=== PATIENT | female | born 1980 | race Caucasian/White ===

== ENCOUNTER 2019-10-04 20:59 | Emergency (ER) | payer OTHER, SELFPAY ==
--- NOTE | 2019-10-04 21:05 | ED.EXTPRO ---
HPI - Extremity Problem General Chief complaint: Extremity Problem,Nontraumatic Stated complaint: swelling in feet and stomach Time Seen by Provider: 10/04/19 21:05 Source: patient and RN notes reviewed Mode of arrival: wheelchair Limitations: no limitations History of Present Illness HPI Narrative: patient comes from another facility where she was seen in the emergency room. She was seen there due to her lower extremity swelling and she says that her abdomen is swelling. She says it has been getting worse since this morning when she was at the emergency room. She does not know what kind it test she had. She states she does not remember what they told her to do or how they treated her. She was given some fentanyl initially that did not help with the pain in her legs or feet. She was then given some morphine but that has since worn off. She complains that her feet hurt to walk on. She feels like her stomach is getting bigger. MD Complaint: extremity pain and extremity swelling Onset (ago): day(s) (3) Pain Consistency: constant Location: left, right, lower extremity and other ( and abdomen) Quality: aching and dull Radiation: none Relieving factors: nothing Exacerbating factors: weight bearing and palpation Associated symptoms: denies other symptoms Related Data Home Medications Medication Instructions Recorded Confirmed albuterol sulfate [Ventolin HFA] 93 inh INHALATION BID 10/04/19 10/04/19 amlodipine 2.5 mg PO DAILY 10/04/19 10/04/19 atorvastatin 80 mg PO DAILY 10/04/19 10/04/19 budesonide-formoterol [Symbicort] 1 inh INHALATION BID 10/04/19 10/04/19 ergocalciferol (vitamin D2) 1,250 mcg PO DAILY 10/04/19 10/04/19 escitalopram oxalate 10 mg PO DAILY 10/04/19 10/04/19 furosemide 40 mg PO DAILY 10/04/19 10/04/19 gabapentin 300 mg PO BID 10/04/19 10/04/19 metoprolol tartrate 25 mg PO BID 10/04/19 10/04/19 polyethylene glycol 3350 [ClearLax] 17 g PO DAILY PRN 10/04/19 10/04/19 prazosin 1 mg PO DAILY 10/04/19 10/04/19 quetiapine 100 mg PO HS 10/04/19 10/04/19 Allergies Allergy/AdvReac Type Severity Reaction Status Date / Time No Known Allergies Allergy Verified 10/04/19 23:41 Review of Systems Constitutional: Constitutional: Reports no additional constitutional complaints, Denies chills and Denies fever(s) Eyes: Eyes: Reports no additional eye complaints ENT: Reports system reviewed and no additional complaints, except as documented Cardiovascular: Cardiovascular: Denies chest pain and Denies rapid heart rate Respiratory: Respiratory: Denies chest congestion, Denies cough, Denies dyspnea and Denies wheezing Gastrointestinal: Gastrointestinal: Reports as per HPI Genitourinary: Genitourinary: Reports no additional female genitourinary complaints Musculoskeletal: Musculoskeletal: Reports as per HPI Integumentary/Breasts: Skin/Breast: Reports system reviewed and no additional complaints, except as docu Neurologic: Reports system reviewed and no additional complaints, except as documented Endocrine: Endocrine: Reports no additional endocrine complaints PMFSH Past Medical History Medical History (Updated 10/05/19 @ 00:01 by Sanford Crandall MD) Bipolar affect, depressed Hypertension Peripheral edema Surgical History Surgical History (Updated 10/05/19 @ 00:01 by Sanford Crandall MD) H/O repair of rotator cuff left History of appendectomy Social History Social History (Updated 10/04/19 @ 23:49 by Sanford Crandall MD) Smoking packs per day: 1.5 Smoking cigarettes per day: 30.0 Smoking status: Current every day smoker Tobacco type: cigarettes Alcohol intake: former Substance use: never Exam Const: General: healthy appearing and no acute distress Nutritional Appearance: well nourished Orientation/consciousness: patient oriented x3 HENMT: Head: normal to inspection Ears: external ears normal General nose exam: Normal external nose present Face and sinus: normal facial exam Mouth:
[2019-10-04 21:14] VITALS: BP 138/87; PULSE 94; RESP 15; TEMP 36.9; O2SAT 97
--- NOTE | 2019-10-04 22:46 | PC.NURSE ---
4TH CALL PLACED TO [facility] ABOUT RECEIVING ER CHART - PATIENT IS UPDATED ON WAIT TIME
--- NOTE | 2019-10-04 23:18 | PC.NURSE ---
Spoke with dry house operator Sergey at [facility] regarding er chart release. states has attempted and received busy signal. gave 2nd floor fax number. awaiting chart.
[2019-10-04] MEDS: POTASSIUM BICARBONATE 25 MEQ TABEF PO (23:43)
[2019-10-04] MEDS: FUROSEMIDE INJ 40 MG/4 ML VIAL IM (23:43)
[2019-10-05 00:21] VITALS: BP 166/95; PULSE 99; RESP 16; O2SAT 98
== END 2019-10-05 00:15 | disposition home or self-care (01) ==
PROVIDERS: Emergency Provider Emergency Medicine; PCP Physician Assistant
DX: I50.9 Heart failure, unspecified (principal)
CPT/HCPCS: 96372; 99282; 99283; A9270; J1940

== ENCOUNTER 2021-10-09 10:03 | Inpatient (IN) | payer OTHER, SELFPAY ==
[2021-10-09] VITALS (25 sets, daily range): BP systolic 130–154; BP diastolic 87–103; PULSE 98–130; RESP 16–22; TEMP 36.1–37.1; O2SAT 90–99; BMI 34.0
--- NOTE | ~2021-10-09 | CT_ITS ---
EXAMINATION: CTA brain carotid DATE: 10/14/2021 15:07 INDICATION: Cerebrovascular accident. TECHNIQUE: Computed tomographic angiography (CTA) of the head was performed without and with 100 mL O mnipaque-350 intravenous contrast. CTA of the neck was performed with intravenous contrast. Automated exposure control and iterative reconstruction technique were employed. The dose-length product was 2 392.04 mGy-cm. Maximum intensity projection and volume rendered 3D-reconstructions were created by marc avilez technologist on a separate workstation. COMPARISON: Head CT 10/09/2021 FINDINGS: HEAD CTA: Motion artifact decreases sensitivity. There is an infarct in left cerebellum. There is no intracranial hemorrhage, acute infarction, or abnormal intracranial mass lesion. The ventricles are n ormal in size. The paranasal sinuses are clear. The orbits are normal. The mastoid air cells are norm al. Right vertebral artery is dominant. There is no significant stenosis of basilar artery or the pos terior cerebral arteries. There is no significant stenosis of the intracranial internal carotid arter ies or anterior or middle cerebral arteries. Anterior communicating artery is normal. The posterior c ommunicating arteries are normal. There is no aneurysm. NECK CTA: The visualized portions of the lungs demonstrate groundglass opacities in the upper lobes. There are no pathologically enlarged lymph nodes. Motion artifact obscures the proximal left vertebra l artery. There is no significant stenosis of the vertebral arteries. There is plaque in the proximal internal carotid arteries. There is 0% stenosis of the proximal right internal carotid artery relati ve to normal distal artery lumen diameter (NASCET criteria). There is 0% stenosis of the proximal lef t internal carotid artery relative to normal distal artery lumen diameter. There is mild cervical spo ndylosis. IMPRESSION: 1. Stable infarct in left cerebellum, likely chronic. 2. No aneurysm or significant intracranial internal stenosis. 3. 0% stenosis of the proximal internal carotid arteries relative to normal distal artery lumen diame ters (NASCET criteria). Reviewed, dictated and finalized at location A. IMPRESSION: 1. Stable infarct in left cerebellum, likely chronic. 2. No aneurysm or significant intracranial internal stenosis. 3. 0% stenosis of the proximal internal carotid arteries relative to normal dis vandana artery lumen diameters (NASCET criteria).
--- NOTE | ~2021-10-09 | CT_ITS ---
EXAMINATION: CT brain wo con DATE: 10/09/2021 10:49 INDICATION: Altered mental status. Confusion. Speech deficit. TECHNIQUE: Computed tomography (CT) of the head was performed without intravenous contrast. The mA wa s adjusted according to patient size. Iterative reconstruction technique was employed. The dose-lengt h product was 605.33 mGy-cm. COMPARISON: None FINDINGS: There is an infarct in left cerebellum. There is no intracranial hemorrhage or abnormal int racranial mass lesion. The ventricles are normal in size. There is mild mucosal thickening in the par anasal sinuses. The orbits are normal. The mastoid air cells are normal. IMPRESSION: 1. Infarct in left cerebellum, likely subacute or chronic. Reviewed, dictated and finalized at location A.
--- NOTE | ~2021-10-09 | XR_ITS ---
EXAMINATION: XR chest 1V portable 10/09/2021 13:08 INDICATION: Cough. Altered mental status. PROCEDURE: 2 view chest COMPARISON: No prior studies for comparison. FINDINGS: The lungs are clear. The cardiomediastinal silhouette is within normal limits. There are no pleural effusions. There is no pneumothorax suspected. IMPRESSION: 1: NO ACUTE CARDIOPULMONARY DISEASE. Reviewed, dictated and finalized at location A.
--- NOTE | ~2021-10-09 | CT_ITS ---
EXAMINATION: CT abdomen pelvis wo con DATE: 10/11/2021 15:02 INDICATION: Coffee-ground emesis. TECHNIQUE: Computed tomography (CT) of the abdomen and pelvis was performed without intravenous contr ast. The dose-length product was 1564.65 mGy-cm. Automated exposure control and iterative reconstruct ion technique were employed. COMPARISON: No prior studies for comparison. . FINDINGS: There is bilateral lower lobe airspace consolidation, left greater than right, consistent w ith pneumonia. Heart size normal. No significant pleural or pericardial effusion. Fatty infiltration of the liver. The spleen, pancreas, adrenal glands and kidneys are unremarkable. G allbladder is present. No hydronephrosis. The colon is moderately distended and contains air-fluid le vels. No definite stricture or mass is identified. No obstruction. No free air. No significant small bowel dilation. There is a Elliott catheter in the bladder which is decompressed. No free air or free f luid. No significant vascular abnormality. No lymphadenopathy. There is an old fracture of the left i schium. There is degenerative change of the hips. No acute osseous abnormality. IMPRESSION: 1. Bilateral lower lobe airspace disease, compatible with pneumonia. 2: Moderately distended colon with air-fluid levels, likely ileus. No definite obstruction. Reviewed, dictated and finalized at location A.
--- NOTE | ~2021-10-09 | XR_ITS ---
XR chest 1V portable 10/11/2021 22:16 Indication: Altered mental status. Shortness of breath. Procedure: AP portable chest Comparison: 10/09/2021 Findings: Asymmetric left-sided airspace disease, compatible with pneumonia. Heart size normal. Right lung clear. No pleural effusion or pneumothorax. Impression: 1: Asymmetric left-sided airspace disease, compatible with pneumonia. Reviewed, dictated and finalized at location A. Impression: 1: Asymmetric left-sided airspace disease, compatible with pneumonia.
[2021-10-09] MEDS: SODIUM CHLORIDE 0.9% IV 1,000 ML 999 ML IV CONT ×3 (10:10→10:35)
--- NOTE | 2021-10-09 10:10 | ED.AMS ---
HPI - Altered Mental Status General Chief Complaint: Altered Mental Status Stated Complaint: AMBULANCE Time Seen by Provider: 10/09/21 10:10 Source: patient Mode of arrival: EMS History of Present Illness HPI narrative: 40-year-old female, smoker with a past history of bipolar disorder, hypertension, dyslipidemia, asthma presents to the ER with -- altered mental status -- patient quit eating -- elevated blood sugars greater than 500 MD complaint: altered mental status Context: diabetes and unknown Associated symptoms: denies other symptoms Related Data Home Medications Medication Instructions Recorded Confirmed albuterol sulfate 90 mcg/actuation 93 inh inhalation BID 10/04/19 10/09/21 aerosol inhaler (Ventolin HFA) amlodipine 2.5 mg tablet 2.5 mg PO DAILY 10/04/19 10/09/21 atorvastatin 80 mg tablet 80 mg PO DAILY 10/04/19 10/09/21 gabapentin 300 mg capsule 300 mg PO BID 10/04/19 10/09/21 metoprolol tartrate 25 mg tablet 25 mg PO BID 10/04/19 10/09/21 polyethylene glycol 3350 17 17 g PO DAILY PRN Constipation 10/04/19 10/09/21 gram/dose oral powder (ClearLax) quetiapine 100 mg tablet 300 mg PO HS 10/04/19 10/09/21 aripiprazole 5 mg tablet 5 mg PO DAILY 10/09/21 10/09/21 lamotrigine 200 mg tablet 200 mg PO BID 10/09/21 10/09/21 levothyroxine 25 mcg tablet 25 mcg PO DAILY 10/09/21 10/09/21 metformin 500 mg tablet,extended 1,000 mg PO BID 10/09/21 10/09/21 release 24 hr paroxetine HCl 20 mg tablet 20 mg PO DAILY 10/09/21 10/09/21 prazosin 2 mg capsule (Minipress) 2 mg PO BID 10/09/21 10/09/21 prazosin 5 mg capsule (Minipress) 5 mg PO DAILY 10/09/21 10/09/21 trazodone 100 mg tablet 100 mg PO HS 10/09/21 10/09/21 Allergies Allergy/AdvReac Type Severity Reaction Status Date / Time No Known Allergies Allergy Verified 10/09/21 12:41 Review of Systems Review of Systems: All systems reviewed & are unremarkable except as noted in HPI and below Constitutional: Constitutional: Reports as per HPI and Reports no additional constitutional complaints Eyes: Eyes: Reports as per HPI and Reports no additional eye complaints ENT: Reports system reviewed and no additional complaints, except as documented and Reports as per HPI Cardiovascular: Cardiovascular: Reports as per HPI and Reports no additional cardiovascular complaints Respiratory: Respiratory: Reports as per HPI and Reports no additional respiratory complaints Gastrointestinal: Gastrointestinal: Reports as per HPI and Reports no additional gastrointestinal complaints Genitourinary: Genitourinary: Reports no additional female genitourinary complaints and Reports as per HPI Musculoskeletal: Musculoskeletal: Reports no additional musculoskeletal complaints and Reports as per HPI Integumentary/Breasts: Skin/Breast: Reports system reviewed and no additional complaints, except as docu and Reports as per HPI Neurologic: Reports system reviewed and no additional complaints, except as documented and Reports as per HPI Psychiatric: Psychiatric: Reports no additional psychiatric complaints and Reports as per HPI Endocrine: Endocrine: Reports no additional endocrine complaints and Reports as per HPI Hematologic/Lymphatic: Hematologic/Lymphatic: Reports no additional hematologic/lymphatic complaints and Reports as per HPI Allergic/Immunologic: Allergic/Immunologic: Reports no additional allergic/immunologic complaints and Reports as per HPI [facility] Past Medical History Medical History Bipolar affect, depressed Hypertension Peripheral edema Surgical History Surgical History H/O repair of rotator cuff left History of appendectomy Social History Social History Smoking packs per day: 1.5 Smoking cigarettes per day: 30.0 Smoking status: Current every day smoker Tobacco type: cigarettes Alcohol in
--- NOTE | 2021-10-09 10:13 | ECG_ITS ---
Measurements Intervals Maribel Rate: 114 P: 66 NC: 149 QRS: 78 QRSD: 89 T: 266 QT: 379 QTc: 522 Interpretive Statements SINUS TACHYC[address] ST DEVIATION AND MODERATE T-WAVE ABNORMALITY, CONSIDER ANTEROLATERAL ISCHEMIA [-0.1+ mV T-WAVE IN V3-V6] ST DEVIATION AND MODERATE T-WAVE ABNORMALITY, CONSIDER INFERIOR ISCHEMIA [-0.1+ mV T- WAVE IN II/aVF] NO PREVIOUS ECG AVAILABLE FOR COMPARISON Electronically Signed On 10-09-2021 18:52:42 CDT by Carine Perrin M.D.
[2021-10-09 10:25] LABS: Glucose Point of Care > 450 mg/dl (65-105)
[2021-10-09 10:37] LABS: Basophils Absolute Auto 0.06 K/mm3 (0.00-0.10); Basophils Percent Auto 0.4 % (0.0-1.0); Eosinophils Absolute Auto 0.02 K/mm3 (0.02-0.50); Eosinophils Percent Auto 0.1 % (1.0-6.0); Hematocrit 37.6 % (35.0-49.0); Immature Granulocyte Absolute 0.14 K/mm3 (0.00-0.00); Immature Granulocyte Percent A 0.9 % (0.0-0.0); Lymphocytes Absolute Auto 3.11 K/mm3 (1.10-4.50); Lymphocytes Percent Auto 19.1 % (18.0-42.0); Mean Corpuscular HGB Conc 31.9 g/dL (32.0-36.0); Mean Corpuscular Hemoglobin 27.8 pg (27.0-31.0); Mean Platelet Volume 9.9 fl (9.2-11.8); Monocytes Absolute Auto 1.11 K/mm3 (0.10-0.90); Monocytes Percent Auto 6.8 % (2.0-11.0); Neutrophils Absolute Auto 11.9 K/mm3 (1.7-7.2); Neutrophils Percent Auto 72.7 % (50.0-70.0); Platelet Count Result 223 K/mm3 (150-420); Red Blood Count 4.32 M/mm3 (4.20-5.40); Red Cell Distribution Width 15.2 % (11.6-14.4); White Blood Count 16.3 K/mm3 (4.8-10.8)
[2021-10-09] MEDS: INSULIN HUMAN REGULAR (*BKC) 100 UNITS/ML 10 UNITS IV PUSH ×2 (10:46→11:13)
[2021-10-09 10:52] LABS: INR 1.5; Partial Thromboplastin Time 26.4 SEC (23.90-30.70); Prothrombin Time 16.1 Seconds (9.50-12.10)
[2021-10-09 10:59] LABS: Lactic Acid Reflex 3.4 mmol/L (0.4-2.0)
[2021-10-09 11:01] LABS: Alanine Aminotransferase 15 U/L (14-59); Albumin Level 2.4 g/dL (3.4-5.0); Alkaline Phosphatase 129 U/L (46-116); Anion Gap 15 mmol/L (8-16); Aspartate Amino Transferase 15 U/L (15-37); Bilirubin,Total 0.5 mg/dL (0.00-1.00); Blood Urea Nitrogen 25 mg/dL (7-18); Calcium 8.8 mg/dL (8.5-10.1); Carbon Dioxide 25 mmol/L (21-32); Chloride 106 mmol/L (98-108); Estimated Glomerular Filt Rate 47; NT Pro B Type Natriuretic Pept 410 pg/mL (0-125); Osmolality Calculated 327 mOsm/kg (285-295); Phosphorus 2.6 mg/dL (2.6-4.7); Sodium 146 mmol/L (136-145); Total Protein 7.5 g/dL (6.4-8.2)
[2021-10-09 11:02] LABS: Lipase 114 U/L (73-393); Magnesium 2.3 mg/dL (1.8-2.4); Potassium 2.4 mmol/L (3.5-5.1); Troponin I 16.3 ng/L (0.00-60.4)
[2021-10-09 11:03] LABS: Glucose 478 mg/dL (70-99)
--- NOTE | 2021-10-09 11:07 | PM.IMHP ---
H&P: HPI History of Present Illness Date/Time: 10/10/21 11:07 Chief Complaint: ams and hyperglycemia Narrative: This is a 40-year-old female that is currently having auditory and visual hallucinations possibly secondary to noncompliance with psych meds. Patient has a past medical history of bipolar. Patient is a poor historian all information obtained from medical records. Patient is only alert to first name. Vital signs 97.8, 82, 18, 93%, 160/78, WBCs 15.2, hemoglobin 10.8, hematocrit 35.2, platelets 186, sodium 146, potassium 2.5, glucose 217, lactic acid 1.6, magnesium 1.6, AST 20, total bilirubin 0.5, ALT 8, troponin 16.3, BNP 14, UA positive for protein glucose ketones bilirubin bacteria toxicology negative chest x-ray unremarkable CT indicate subacute or chronic infarct. According to patient's boyfriend she has not been eating her meals or taking her medication. Patient does not appear to be in any distress. Review of Systems Review of Systems: ROS unobtainable: Yes unobtainable due to medical condition PMFSH Past Medical History Medical History Bipolar affect, depressed Hypertension Peripheral edema Surgical History Surgical History H/O repair of rotator cuff left History of appendectomy Social History Social History Smoking packs per day: 1.5 Smoking cigarettes per day: 30.0 Years smoked: 20 Smoking pack-years: 30.00 Smoking status: Heavy tobacco smoker Tobacco type: cigarettes Second hand tobacco smoke exposure: Yes Alcohol intake: current Drinks per week: 6 Substance use: unknown Gender identity (if verbalized by the patient): Female Sexual Orientation (if Verbalized by the Patient): Straight or Heterosexual Spiritual care concerns: No Meds Home Medications and Allergies Home Medications Medication Instructions Recorded Confirmed Type albuterol sulfate 90 mcg/actuation 93 inh inhalation BID 10/04/19 10/09/21 History aerosol inhaler (Ventolin HFA) amlodipine 2.5 mg tablet 2.5 mg PO DAILY 10/04/19 10/09/21 History atorvastatin 80 mg tablet 80 mg PO DAILY 10/04/19 10/09/21 History gabapentin 300 mg capsule 300 mg PO BID 10/04/19 10/09/21 History metoprolol tartrate 25 mg tablet 25 mg PO BID 10/04/19 10/09/21 History polyethylene glycol 3350 17 17 g PO DAILY PRN Constipation 10/04/19 10/09/21 History gram/dose oral powder (ClearLax) quetiapine 100 mg tablet 300 mg PO HS 10/04/19 10/09/21 History aripiprazole 5 mg tablet 5 mg PO DAILY 10/09/21 10/09/21 History lamotrigine 200 mg tablet 200 mg PO BID 10/09/21 10/09/21 History levothyroxine 25 mcg tablet 25 mcg PO DAILY 10/09/21 10/09/21 History metformin 500 mg tablet,extended 1,000 mg PO BID 10/09/21 10/09/21 History release 24 hr paroxetine HCl 20 mg tablet 20 mg PO DAILY 10/09/21 10/09/21 History prazosin 2 mg capsule (Minipress) 2 mg PO BID 10/09/21 10/09/21 History prazosin 5 mg capsule (Minipress) 5 mg PO DAILY 10/09/21 10/09/21 History trazodone 100 mg tablet 100 mg PO HS 10/09/21 10/09/21 History Allergies Allergy/AdvReac Type Severity Reaction Status Date / Time No Known Allergies Allergy Verified 10/09/21 12:41 Vital Signs Vital Signs - 24 hr 10/09/21 11:15 10/09/21 11:30 10/09/21 11:45 Temperature Pulse Rate Respiratory Rate Blood Pressure Pulse Oximetry 93 99 97 Oxygen Delivery 10/09/21 12:00 10/09/21 12:15 10/09/21 12:30 Temperature Pulse Rate 115 H Respiratory Rate 20 Blood Pressure 134/103 H Pulse Oximetry 96 93 95 Oxygen Delivery 10/09/21 14:15 10/09/21 12:43 10/09/21 12:45 Temperature Pulse Rate 110 H Respiratory Rate 20 Blood Pressure 132/87 134/103 H Pulse Oximetry 93 93 95 Oxygen Delivery Room Air 10/09/21 12:46 10/09/21 13:00 10/09/21 13:15 Temperature
[2021-10-09] MEDS: KCL 20 MEQ/SW 100 ML 100 ML 50 MEQ IVPB (11:20)
[2021-10-09] MEDS: ASPIRIN 81 MG CHEWABLE TABLET 324 MG PO (11:25)
[2021-10-09] MEDS: POTASSIUM CHLORIDE 20 MEQ PACKET (FOR LIQUID) 40 MEQ PO (11:25)
[2021-10-09] MEDS: LACTATED RINGERS 1,000 ML 999 ML IV CONT (11:35)
[2021-10-09 12:36] LABS: Glucose Point of Care 240 mg/dl (65-105)
[2021-10-09 13:35] LABS: Reflex Lactic Acid Yes or No Add Lactic
[2021-10-09 14:09] LABS: Anion Gap 14 mmol/L (8-16); Blood Urea Nitrogen 21 mg/dL (7-18); Calcium 8.4 mg/dL (8.5-10.1); Carbon Dioxide 22 mmol/L (21-32); Chloride 113 mmol/L (98-108); Estimated Glomerular Filt Rate 55; Glucose 287 mg/dL (70-99); Osmolality Calculated 321 mOsm/kg (285-295); Potassium 3.2 mmol/L (3.5-5.1); Sodium 149 mmol/L (136-145)
[2021-10-09 14:18] LABS: Lactic Acid 3.4 mmol/L (0.4-2.0)
--- NOTE | 2021-10-09 15:33 | PC.NURSE ---
pt admitted to room 203 from ED. Pt is confused at this time. Elliott placed, and pt groin area cleaned with soap and water. Pt is not very cooperative at this time. Pt's boyfriend at bedside he states that the pt is diabetic and has not been eating for the last 2 weeks. RN showed pt and Boy friend how to use the TV control and call light. Pt asked not to get out of bed alone but to call for assistance. She verbalized understanding. All 4 side rails up and bed alarm is on.
[2021-10-09] MEDS: SODIUM CHLORIDE 0.9% IV 1,000 ML 150 ML IV CONT (15:40)
[2021-10-09 16:22] LABS: Add Urine Microscopic? YES; Appearance Urine Clear (Clear); Bilirubin Urine 2+ (Negative); Blood Urine Negative (Negative); Color Urine Dark Yellow (Yellow); Glucose Urine UA 2+ (Negative); Ketones Urine Trace (Negative); Leukocyte Esterase Ur Negative (Negative); Nitrate Urine Negative (Negative); Protein Urine 2+ (Negative); Specific Grav Ur 1.025 (1.010-1.020)
[2021-10-09 16:23] LABS: Pregnancy On Board Control Positive; Urine Pregnancy Test Negative
[2021-10-09 16:34] LABS: Amphetamine Screen Urine Negative (Negative); Barbiturate Screen Urine Negative (Negative); Benzodiazepines Screen Urine Negative (Negative); Cannabinoid Screen Urine Negative (Negative); Cocaine Screen Urine Negative (Negative); Methadone Screen Urine Negative (Negative); Opiate Screen Urine Negative (Negative); Phencyclidine Screen Urine Negative (Negative)
[2021-10-09 16:37] LABS: Glucose Point of Care 346 mg/dl (65-105)
[2021-10-09 16:39] LABS: Bacteria Urine 2+ /hpf; RBC Urine None seen /hpf (0-2); Squamous Epithelial Cell Urine Few /hpf (Few); WBC Urine None seen /hpf (0-3)
[2021-10-09] MEDS: lamoTRIgine 100 MG TABLET 200 MG PO (16:53)
[2021-10-09] MEDS: GABAPENTIN 300 MG CAPSULE PO (16:53)
--- NOTE | 2021-10-09 17:13 | PC.NURSE ---
pt unable to follow simple commands at this time, takes pills in applesauce with some resistance, pt attempting to pull out ivs, coban applied to both sites, s/o is in room, pt has pinpoint pupils and tremors in arms/hands
[2021-10-09] MEDS: TOLNAFTATE 1% POWDER 45 GM BTL 1 APPLIC TOPICAL (20:38)
[2021-10-09] MEDS: METOPROLOL TARTRATE 25 MG TABLET PO (20:38)
[2021-10-09 20:40] LABS: Glucose Point of Care 258 mg/dl (65-105)
[2021-10-09 23:31] LABS: Glucose Point of Care 227 mg/dl (65-105)
[2021-10-10] VITALS (7 sets, daily range): BP systolic 94–164; BP diastolic 63–82; PULSE 82–108; RESP 18–20; TEMP 36.3–36.6; O2SAT 91–94
[2021-10-10] MEDS: SODIUM CHLORIDE 0.9% IV 1,000 ML 150 ML IV CONT ×4 (00:07→23:13)
--- NOTE | 2021-10-10 00:08 | PC.NURSE ---
Pt alert to self, does not answer questions appropriately, noted to laugh at inappropriate times during assessment, has periodic jerking motions of arms and legs, cannot maintain eye contact, moves head from side to side, pupils constricted and sluggish but equal. No acute distress noted, fluids offered, call light in reach.
[2021-10-10 04:11] LABS: Glucose Point of Care 225 mg/dl (65-105)
--- NOTE | 2021-10-10 04:59 | PC.NURSE ---
pt tongue noted to have a white-brownish coating, attempted to clean with oral swab, unable to remove. Pt denies complaints at this time, will update [employer].
[2021-10-10 05:22] LABS: Hematocrit 35.2 % (35.0-49.0); Hemoglobin 10.8 g/dL (12.0-15.0); Mean Corpuscular HGB Conc 30.7 g/dL (32.0-36.0); Mean Corpuscular Hemoglobin 27.8 pg (27.0-31.0); Mean Corpuscular Volume 90.7 fL (78.0-102.0); Mean Platelet Volume 9.6 fl (9.2-11.8); Platelet Count Result 186 K/mm3 (150-420); Red Blood Count 3.88 M/mm3 (4.20-5.40); Red Cell Distribution Width 15.7 % (11.6-14.4); White Blood Count 15.2 K/mm3 (4.8-10.8)
[2021-10-10 05:38] LABS: Lactic Acid Reflex 1.6 mmol/L (0.4-2.0)
[2021-10-10] MEDS: LEVOTHYROXINE SODIUM 25 MCG TABLET PO (05:38)
[2021-10-10 05:48] LABS: Hemoglobin A1C 9.1 % (<5.7)
[2021-10-10 05:58] LABS: Alanine Aminotransferase 8 U/L (14-59); Albumin Level 2.2 g/dL (3.4-5.0); Alkaline Phosphatase 118 U/L (46-116); Anion Gap 11 mmol/L (8-16); Aspartate Amino Transferase 20 U/L (15-37); Bilirubin,Total 0.5 mg/dL (0.00-1.00); Blood Urea Nitrogen 11 mg/dL (7-18); Calcium 8.4 mg/dL (8.5-10.1); Carbon Dioxide 24 mmol/L (21-32); Chloride 111 mmol/L (98-108); Estimated CRCL calculation 81 ml/min; Estimated Glomerular Filt Rate > 60; Glucose 217 mg/dL (70-99); Magnesium 1.6 mg/dL (1.8-2.4); Osmolality Calculated 308 mOsm/kg (285-295); Sodium 146 mmol/L (136-145); Total Protein 6.7 g/dL (6.4-8.2)
[2021-10-10 06:14] LABS: Potassium 2.5 mmol/L (3.5-5.1); Thyroid Stimulating Hormone Reflex 1.47 u/IU/mL (0.36-3.74)
--- NOTE | 2021-10-10 06:15 | PC.NURSE ---
Lab called to report a low potassium value of 2.5.
--- NOTE | 2021-10-10 06:45 | PC.NURSE ---
Umu Kovacs [employer] SALESMAN [employer]IVER notified of low potassium value; orders received and noted.
[2021-10-10] MEDS: KCL 20 MEQ/SW 100 ML 100 ML 50 MEQ IVPB ×2 (07:29→09:25)
[2021-10-10 07:48] LABS: Glucose Point of Care 206 mg/dl (65-105)
[2021-10-10] MEDS: lamoTRIgine 100 MG TABLET 200 MG PO ×2 (08:00→16:23)
[2021-10-10] MEDS: ENOXAPARIN 40 MG/0.4 ML SYRINGE SUB-Q (08:25)
[2021-10-10] MEDS: ARIPiprazole 5 MG TABLET PO (08:25)
[2021-10-10] MEDS: POTASSIUM CHLORIDE 20 MEQ TABLET 40 MEQ PO ×2 (08:26→16:23)
[2021-10-10] MEDS: amLODIPine BESYLATE 2.5 MG TABLET PO (08:26)
[2021-10-10] MEDS: PRAZOSIN HCL 1 MG CAPSULE 5 MG PO (08:26)
[2021-10-10] MEDS: PARoxetine 20 MG TABLET PO (08:27)
[2021-10-10] MEDS: ATORVASTATIN 40 MG TABLET 80 MG PO (08:27)
[2021-10-10] MEDS: METOPROLOL TARTRATE 25 MG TABLET PO ×2 (08:28→20:16)
[2021-10-10] MEDS: TOLNAFTATE 1% POWDER 45 GM BTL 1 APPLIC TOPICAL ×2 (09:00→20:27)
[2021-10-10] MEDS: GABAPENTIN 300 MG CAPSULE PO ×2 (09:30→16:23)
[2021-10-10 11:31] LABS: Glucose Point of Care 208 mg/dl (65-105)
[2021-10-10] MEDS: NYSTATIN 100,000 UNITS/ML SUSP 5 ML ORAL.SUSP PO ×3 (13:44→20:16)
[2021-10-10 16:39] LABS: Glucose Point of Care 259 mg/dl (65-105)
--- NOTE | 2021-10-10 17:26 | PC.NURSE ---
pt has slept most of day. at times will arouse and holler out. hollers out profanity and then words don't make sense. has a startled look if you can get her eyes to open. at times will say her name. most times will not. if she wakes for short spans will seem like she is arguing with some one. then tries to throw legs over rails and then drifts off again. will not feed self. pulls everything off tray into bed. attempted to feed her lunch spaghetti cut up in very small pieces. swallows it whole. does not try to chew. this evening meatloaf pockets in mouth will not chew or swallow. takes sm sips from cup. will not suck on straw at this time and the next time she does. oral care given with each turn every 2 hours. hob up. sr to st on tele. rates 90-110's. Elliott tom urine.
[2021-10-10] MEDS: traZODone HCL 50 MG TABLET 100 MG PO (20:16)
[2021-10-10] MEDS: QUEtiapine FUMARATE 100 MG TABLET 300 MG PO (20:16)
[2021-10-10 20:28] LABS: Glucose Point of Care 216 mg/dl (65-105)
[2021-10-11] VITALS (16 sets, daily range): BP systolic 94–123; BP diastolic 59–88; PULSE 98–112; RESP 12–20; TEMP 36.3–37.1; O2SAT 90–95
--- NOTE | 2021-10-11 01:00 | ECHO_ITS ---
Patient Info Name: Kayla Huynh Age: 40 years : 1980 Gender: Female Ht: 64 in Wt: 198 lbs BSA: 2.05 m2 HR: 101 bpm BP: 121 / 82 mmHg Heart Rhythm: Sinus Rhythm Technical Quality: Fair Exam Date: 10/11/2021 2:45 PM Exam Location: [facility] EM[facility] Patient Status: Inpatient Admit Date: 10/11/2021 Staff Ordering Physician: Isabel KovacsP-Celestino Hat Former: Dana Gómez RDCS Attending Provider: Shane Jimenez MD Referring Physician: Fermín COFFEY; Exam Type: CA echo doppler color flow Study Info Indications - cva Complete two-dimensional, color flow and Doppler transthoracic echocardiogram is performed. Summary 1. Complete two-dimensional, color flow and Doppler transthoracic echocardiogram is performed. 2. Left ventricular chamber dimension is normal. 3. Left ventricular systolic function is normal, estimated at 60-65%. 4. The left ventricular diastolic function is abnormal. 5. E/e' 12 is mildly elevated. 6. No pulmonary hypertension, estimated pulmonary arterial systolic pressure is 20 mmHg. Left Ventricle E/e' 12 is mildly elevated. Left ventricular chamber dimension is normal. Left ventricular systolic function is normal, estimated at 60-65%. The left ventricular diastolic function is abnormal. Right Ventricle Right ventricular chamber dimension is not well visualized. Left Atria Left atrial chamber dimension is normal. Right Atria Right atrial chamber dimension is normal. Aortic Valve The aortic valve is trileaflet. There is no aortic valve stenosis. There is no aortic valve regurgitation. Pulmonic Valve The pulmonic valve is not well visualized. Mitral Valve There is no mitral valve stenosis. There is no mitral valve regurgitation. Tricuspid Valve The tricuspid valve leaflets are not well visualized. There is no tricuspid valve regurgitation. No pulmonary hypertension, estimated pulmonary arterial systolic pressure is 20 mmHg. Pericardium/Pleural There is no pericardial effusion. Inferior Vena Cava Inferior vena cava is not well visualized. Aorta The aortic root size at the sinus of Valsalva is normal. Left Ventricular Outflow Tract Name Value Normal LVOT 2D LVOT Diameter 2.0 cm LVOT Doppler LVOT Peak Velocity 113 cm/s LVOT Peak Gradient 5 mmHg LVOT Mean Gradient 2 mmHg LVOT VTI 14 cm LVOT VTI/AV VTI Ratio 0.6 LVOT Stroke Volume 45 ml Pulmonic Valve Name Value Normal RVOT Doppler RVOT Peak Gradient 3 mmHg PV Doppler PV Peak Velocity 115 cm/s PV Peak Gradient
[2021-10-11] MEDS: LEVOTHYROXINE SODIUM 25 MCG TABLET PO (05:55)
[2021-10-11] MEDS: SODIUM CHLORIDE 0.9% IV 1,000 ML 150 ML IV CONT ×2 (05:59→12:16)
[2021-10-11 07:44] LABS: Hematocrit 29.8 % (35.0-49.0); Hemoglobin 9.2 g/dL (12.0-15.0); Mean Corpuscular HGB Conc 30.9 g/dL (32.0-36.0); Mean Corpuscular Hemoglobin 27.7 pg (27.0-31.0); Mean Corpuscular Volume 89.8 fL (78.0-102.0); Platelet Count Result 137 K/mm3 (150-420); Red Blood Count 3.32 M/mm3 (4.20-5.40); Red Cell Distribution Width 15.9 % (11.6-14.4)
[2021-10-11 08:00] LABS: Alanine Aminotransferase 26 U/L (14-59); Alkaline Phosphatase 103 U/L (46-116); Anion Gap 12 mmol/L (8-16); Aspartate Amino Transferase 38 U/L (15-37); Bilirubin,Total 0.6 mg/dL (0.00-1.00); Blood Urea Nitrogen 8 mg/dL (7-18); Calcium 7.9 mg/dL (8.5-10.1); Carbon Dioxide 23 mmol/L (21-32); Chloride 113 mmol/L (98-108); Estimated CRCL calculation 82 ml/min; Estimated Glomerular Filt Rate > 60; Glucose 219 mg/dL (70-99); Osmolality Calculated 311 mOsm/kg (285-295); Potassium 3.4 mmol/L (3.5-5.1); Sodium 148 mmol/L (136-145); Total Protein 6.3 g/dL (6.4-8.2)
[2021-10-11 08:22] LABS: Glucose Point of Care 256 mg/dl (65-105)
[2021-10-11] MEDS: NYSTATIN 100,000 UNITS/ML SUSP 5 ML ORAL.SUSP PO ×4 (08:28→20:47)
[2021-10-11] MEDS: ARIPiprazole 5 MG TABLET PO (08:29)
[2021-10-11] MEDS: METOPROLOL TARTRATE 25 MG TABLET PO (08:29)
[2021-10-11] MEDS: ENOXAPARIN 40 MG/0.4 ML SYRINGE SUB-Q (08:29)
[2021-10-11] MEDS: PARoxetine 20 MG TABLET PO (08:30)
[2021-10-11] MEDS: amLODIPine BESYLATE 2.5 MG TABLET PO (08:30)
[2021-10-11] MEDS: lamoTRIgine 100 MG TABLET 200 MG PO ×2 (08:31→16:54)
[2021-10-11] MEDS: ATORVASTATIN 40 MG TABLET 80 MG PO (08:31)
[2021-10-11] MEDS: TOLNAFTATE 1% POWDER 45 GM BTL 1 APPLIC TOPICAL ×2 (08:32→20:53)
--- NOTE | 2021-10-11 08:59 | PCPTNOTE ---
10/11/21 - no goals assigned for patient as she is not being picked up by skilled PT at this time.
[2021-10-11] MEDS: POTASSIUM CHLORIDE 20 MEQ PACKET (FOR LIQUID) 40 MEQ PO ×2 (09:50→16:54)
--- NOTE | 2021-10-11 11:16 | P.PN_ITS ---
Progress Note: A&P Assessment and Plan (1) Altered mental status: Code(s): R41.82 - Altered mental status, unspecified Status: Acute Assessment and Plan: * Possibly secondary to CVA versus noncompliant with psych medication * CT of the head indicate left cerebellum infarctlikely subacute or chronic * MRI, echo of the carotid arteries pending * PT OT recommend placement patient is not safe to discharge home * Speech therapy for swallow eval and cognitive deficiency pending * Continue Plavix and statins * Continue neurochecks * WBCs, lactic acid and chest x-ray all unremarkable and within normal limits * Toxicology negative (2) Cerebellar infarct: Code(s): I63.9 - Cerebral infarction, unspecified Status: Acute Assessment and Plan: * Possibly secondary to CVA versus noncompliant with psych medication * CT of the head indicate left cerebellum infarctlikely subacute or chronic * MRI, echo of the carotid arteries pending * PT OT recommend placement patient is not safe to discharge home * Speech therapy for swallow eval and cognitive deficiency pending * Continue Plavix and statins * Continue neurochecks * WBCs, lactic acid and chest x-ray all unremarkable and within normal limits (3) Acute hypokalemia: Code(s): E87.6 - Hypokalemia Status: Acute Assessment and Plan: * Etiology unknown * Potassium 2.4>3.2>2.5>3.4 * Supplement (4) Hyperosmolar non-ketotic state due to type 2 diabetes mellitus: Code(s): E11.00 - Type 2 diabetes mellitus with hyperosmolarity without nonketotic hyperglycemic-hyperosmolar coma ([facility]) Status: Acute Assessment and Plan: * Greater than 500 * Secondary to noncompliance * Accu-Chek with sliding scale and hypoglycemic protocol along with a diabetic diet * A1c 9.1 (5) Acute renal failure: Code(s): N17.9 - Acute kidney failure, unspecified Status: Acute Assessment and Plan: * Resolved * Cr 1.24>1.09>0.86>0.85 * Will avoid nephrotoxic agents * renal Dose all medication (6) Hypertension: Code(s): I10 - Essential (primary) hypertension Status: Acute Assessment and Plan: * stable * Continue amlodipine 2.5 increase metoprolol to 37.5 twice daily due to tachycardia * Continue vital signs * Will adjust medication as needed (7) Bipolar affect, depressed: Code(s): F31.30 - Bipolar disorder, current episode depressed, mild or moderate severity, unspecified Status: Acute Assessment and Plan: * Noncompliant * Will Attempt to place patient in behavioral health * Wound home medication (8) Peripheral edema: Code(s): R60.9 - Edema, unspecified Status: Acute Assessment and Plan: * Will add diuretics as needed Subjective Date/time seen: 10/11/21 11:16 Interval history: Patient more alert today than yesterday able to answer a few more questions that was not possible yesterday. Patient still continues to experience auditory and visual hallucinations. She does not appear to be in any distress. Review of Systems Review of Systems: ROS unobtainable: Yes unobtainable due to medical condition Exam Narrative: GENERAL:lethargic with poor hygiene , in no apparent distress. HEAD: normocephalic, atraumatic. EYES: PERRL. Sclera clear/white. Vision is grossly intact. EARS: External ears normal, auditory canals clear and without drainage, TMs normal without perforation. Hearing grossly intact. NOSE: External nose normal with no obvious nasal disc
--- NOTE | 2021-10-11 11:16 | WPDPN ---
Progress Note: A&P Assessment and Plan (1) Altered mental status: Code(s): R41.82 - Altered mental status, unspecified Status: Acute Assessment and Plan: Possibly secondary to CVA versus noncompliant with psych medication CT of the head indicate left cerebellum infarctlikely subacute or chronic MRI, echo of the carotid arteries pending PT OT recommend placement patient is not safe to discharge home Speech therapy for swallow eval and cognitive deficiency pending Continue Plavix and statins Continue neurochecks WBCs, lactic acid and chest x-ray all unremarkable and within normal limits Toxicology negative (2) Cerebellar infarct: Code(s): I63.9 - Cerebral infarction, unspecified Status: Acute Assessment and Plan: Possibly secondary to CVA versus noncompliant with psych medication CT of the head indicate left cerebellum infarctlikely subacute or chronic MRI, echo of the carotid arteries pending PT OT recommend placement patient is not safe to discharge home Speech therapy for swallow eval and cognitive deficiency pending Continue Plavix and statins Continue neurochecks WBCs, lactic acid and chest x-ray all unremarkable and within normal limits (3) Acute hypokalemia: Code(s): E87.6 - Hypokalemia Status: Acute Assessment and Plan: Etiology unknown Potassium 2.4>3.2>2.5>3.4 Supplement (4) Hyperosmolar non-ketotic state due to type 2 diabetes mellitus: Code(s): E11.00 - Type 2 diabetes mellitus with hyperosmolarity without nonketotic hyperglycemic-hyperosmolar coma ([facility]) Status: Acute Assessment and Plan: Greater than 500 Secondary to noncompliance Accu-Chek with sliding scale and hypoglycemic protocol along with a diabetic diet A1c 9.1 (5) Acute renal failure: Code(s): N17.9 - Acute kidney failure, unspecified Status: Acute Assessment and Plan: Resolved Cr 1.24>1.09>0.86>0.85 Will avoid nephrotoxic agents renal Dose all medication (6) Hypertension: Code(s): I10 - Essential (primary) hypertension Status: Acute Assessment and Plan: stable Continue amlodipine 2.5 increase metoprolol to 37.5 twice daily due to tachycardia Continue vital signs Will adjust medication as needed (7) Bipolar affect, depressed: Code(s): F31.30 - Bipolar disorder, current episode depressed, mild or moderate severity, unspecified Status: Acute Assessment and Plan: Noncompliant Will Attempt to place patient in [facility] Wound home medication (8) Peripheral edema: Code(s): R60.9 - Edema, unspecified Status: Acute Assessment and Plan: Will add diuretics as needed Subjective Date/time seen: 10/11/21 11:16 Interval history: Patient more alert today than yesterday able to answer a few more questions that was not possible yesterday. Patient still continues to experience auditory and visual hallucinations. She does not appear to be in any distress. Review of Systems Review of Systems: ROS unobtainable: Yes unobtainable due to medical condition Exam Narrative: GENERAL:lethargic with poor hygiene , in no apparent distress. HEAD: normocephalic, atraumatic. EYES: PERRL. Sclera clear/white. Vision is grossly intact. EARS: External ears normal, auditory canals clear and without drainage, TMs normal without perforation. Hearing grossly intact. NOSE: External nose normal with no obvious nasal discharge, nares without redness, no rhinorrhea. THROAT: Mucous membranes moist, posterior pharynx clear. NECK: Neck supple, non-tender without lymphadenopathy, masses or thyromegaly. CARDIOVASCULAR: Regular rate and rhythm without murmurs, gallops, or rubs. RESPIRATORY: Clear to auscultation. Breath sounds equal bilaterally. No wheezes, rales, or rhonchi. GASTROINTESTINAL: Abdomen soft, non-tender, nondistended. Bowel sounds are active. No hepato-splenomegaly, or palp
[2021-10-11 12:19] LABS: Glucose Point of Care 188 mg/dl (65-105)
[2021-10-11] MEDS: METOCLOPRAMIDE HCL INJ 10 MG/2 ML VIAL 5 MG IV PUSH ×3 (13:11→23:16)
--- NOTE | 2021-10-11 14:00 | PC.NURSE ---
patient change in inpatient status
--- NOTE | 2021-10-11 14:00 | PC.NURSE ---
Hospitalist notified of coffee ground emesis, noted drop of hgb of 12.o admit to 9.2 today, hospitalist will place orders
[2021-10-11] MEDS: ONDANSETRON INJ 4 MG/2 ML VIAL IV PUSH (14:26)
--- NOTE | 2021-10-11 15:00 | PC.NURSE ---
Upon entering room for assessment, pt is brought back to room from having a CT abd/pelvis, pt repositioned in bed and cleaned of vomitus. Pt is alert to self and raul to follow commands and will follow what she is told.
--- NOTE | 2021-10-11 15:58 | PC.NURSE ---
Pts sisters are here to wash her hair, Pt given complete bed bath by sisters and her hair washed. Assisted in new bedding and pt repositioned for comfort. Pt remains alert, VSS.
[2021-10-11] MEDS: GABAPENTIN 300 MG CAPSULE PO (16:51)
[2021-10-11 17:04] LABS: Glucose Point of Care 213 mg/dl (65-105)
[2021-10-11] MEDS: DEXTROSE 5%/0.9% SOD CHL 1,000 ML 75 ML IV CONT (17:05)
--- NOTE | 2021-10-11 17:23 | PC.NURSE ---
Pt was made NPO per [employer] order and change made in pts IVF to D5NS@ 75ml/hr. Pt sitting up in bed, coherent at times and will answer some questions shortly and abruptly, Pt has call hernandez at side but uanble to comprehend to use it. Pt checked frequently.
[2021-10-11 19:07] LABS: Hematocrit 32.1 % (35.0-49.0); Hemoglobin 9.6 g/dL (12.0-15.0)
[2021-10-11 20:40] LABS: Glucose Point of Care 201 mg/dl (65-105)
[2021-10-11] MEDS: traZODone HCL 50 MG TABLET 100 MG PO (20:49)
[2021-10-11] MEDS: QUEtiapine FUMARATE 100 MG TABLET 300 MG PO (20:49)
[2021-10-11] MEDS: METOPROLOL SUCCINATE EXT REL 12.5 MG, METOPROLOL SUCCINATE EXT REL 25 MG 37.5 MG PO (21:01)
[2021-10-11 22:20] LABS: Base Excess ABG 3.2 mmol/L (0-2); HCO3 ABG 26.2 mmol/L (23-29); Oxygen Content ABG 13.3 %vol (16.0-22.0); Oxygen Saturation ABG 92.1 % (95-97); Oxyhemoglobin 91.5 % (94-100); PCO2 ABG 34.1 mmHg (35-45); PO2 ABG 58.6 mmHg (80-90); Total Hemoglobin 10.3 g/dL (12.0-18.0)
[2021-10-11 22:21] LABS: Device NASAL CANNULA; Modified Allen's Test Pass; Site Drawn LEFT RADIAL
[2021-10-11] MEDS: METOPROLOL TARTRATE INJ 5 MG/5 ML VIAL IV PUSH (22:27)
[2021-10-12] VITALS (11 sets, daily range): BP systolic 97–160; BP diastolic 62–93; PULSE 78–106; RESP 13–20; TEMP 36.1–36.8; O2SAT 90–98
--- NOTE | 2021-10-12 01:53 | PC.NURSE ---
Pt's pulse still maintaining in the mid 90's after IVP metoprolol was given. Pt currently sleeping, and will adjust her feet at times. Call light w/in reach; side railsx3 and bed alarm on for pt safety.
[2021-10-12] MEDS: METOCLOPRAMIDE HCL INJ 10 MG/2 ML VIAL 5 MG IV PUSH ×4 (05:23→23:25)
[2021-10-12 05:34] LABS: Alanine Aminotransferase 26 U/L (14-59); Albumin Level 1.9 g/dL (3.4-5.0); Alkaline Phosphatase 108 U/L (46-116); Anion Gap 8 mmol/L (8-16); Aspartate Amino Transferase 29 U/L (15-37); Bilirubin,Total 0.6 mg/dL (0.00-1.00); Blood Urea Nitrogen 6 mg/dL (7-18); Calcium 8.2 mg/dL (8.5-10.1); Carbon Dioxide 28 mmol/L (21-32); Chloride 109 mmol/L (98-108); Estimated CRCL calculation 81 ml/min; Estimated Glomerular Filt Rate > 60; Glucose 257 mg/dL (70-99); Osmolality Calculated 306 mOsm/kg (285-295); Potassium 3.1 mmol/L (3.5-5.1); Sodium 145 mmol/L (136-145); Total Protein 6.5 g/dL (6.4-8.2)
[2021-10-12] MEDS: DEXTROSE 5%/0.9% SOD CHL 1,000 ML 75 ML IV CONT ×2 (06:37→23:25)
[2021-10-12] MEDS: LEVOTHYROXINE SODIUM 25 MCG TABLET PO (06:43)
[2021-10-12 07:53] LABS: Glucose Point of Care 243 mg/dl (65-105)
--- NOTE | 2021-10-12 09:34 | P.PN_ITS ---
Progress Note: A&P Assessment and Plan (1) Altered mental status: Code(s): R41.82 - Altered mental status, unspecified Status: Acute Assessment and Plan: * Possibly secondary to CVA versus noncompliant with psych medication * CT of the head indicate left cerebellum infarctlikely subacute or chronic * MRI delayed due to unsure of whether patient has metal implants or not. We will request documentation from patient's primary care physician on Thursday * echo indicate diastolic dysfunction abnormal * PT OT recommend placement patient is not safe to discharge home * Speech therapy for swallow eval and cognitive deficiency pending * Continue Plavix and statins * Continue neurochecks * WBCs, lactic acid and chest x-ray all unremarkable and within normal limits * Toxicology negative (2) Cerebellar infarct: Code(s): I63.9 - Cerebral infarction, unspecified Status: Acute Assessment and Plan: * Possibly secondary to CVA versus noncompliant with psych medication * CT of the head indicate left cerebellum infarctlikely subacute or chronic * MRI delayed due to unsure of whether patient has metal implants or not. We will request documentation from patient's prim * PT OT recommend placement patient is not safe to discharge home * Speech therapy for swallow eval and cognitive deficiency pending * Continue Plavix and statins * Continue neurochecks * WBCs, lactic acid and chest x-ray all unremarkable and within normal limits (3) Acute hypokalemia: Code(s): E87.6 - Hypokalemia Status: Acute Assessment and Plan: * Etiology unknown * Potassium 2.4>3.2>2.5>3.4>3.1 * Supplement (4) Hyperosmolar non-ketotic state due to type 2 diabetes mellitus: Code(s): E11.00 - Type 2 diabetes mellitus with hyperosmolarity without nonketotic hyperglycemic-hyperosmolar coma ([facility]) Status: Acute Assessment and Plan: * Less than 300 greater than 500 on admission * Secondary to noncompliance * Accu-Chek with sliding scale and hypoglycemic protocol along with a diabetic diet * A1c 9.1 (5) Acute renal failure: Code(s): N17.9 - Acute kidney failure, unspecified Status: Acute Assessment and Plan: * Resolved * Cr 1.24>1.09>0.86>0.85 * Will avoid nephrotoxic agents * renal Dose all medication (6) Hypertension: Code(s): I10 - Essential (primary) hypertension Status: Acute Assessment and Plan: * stable * Continue amlodipine 2.5 increase metoprolol to 37.5 twice daily due to tachycardia * Continue vital signs * Will adjust medication as needed (7) Bipolar affect, depressed: Code(s): F31.30 - Bipolar disorder, current episode depressed, mild or moderate severity, unspecified Status: Acute Assessment and Plan: * Noncompliant * Will Attempt to place patient in behavioral health * continue home medication (8) Peripheral edema: Code(s): R60.9 - Edema, unspecified Status: Acute Assessment and Plan: * Will add diuretics as needed (9) Ileus: Code(s): K56.7 - Ileus, unspecified Status: Acute Assessment and Plan: * CT of the abdomen indicate ileus without obstruction * Patient remained n.p.o. overnight * Added Reglan will also start Protonix * occult blood pending * Will continue to monitor Subjective Date/time seen: 10/12/21 09:34 Interval history: Patient remains lethargic but her mental status has improved since admission. She is able to answer more questions and follow some commands. MRI unable
--- NOTE | 2021-10-12 09:34 | WPDPN ---
Progress Note: A&P Assessment and Plan (1) Altered mental status: Code(s): R41.82 - Altered mental status, unspecified Status: Acute Assessment and Plan: Possibly secondary to CVA versus noncompliant with psych medication CT of the head indicate left cerebellum infarctlikely subacute or chronic MRI delayed due to unsure of whether patient has metal implants or not. We will request documentation from patient's primary care physician on Thursday echo indicate diastolic dysfunction abnormal PT OT recommend placement patient is not safe to discharge home Speech therapy for swallow eval and cognitive deficiency pending Continue Plavix and statins Continue neurochecks WBCs, lactic acid and chest x-ray all unremarkable and within normal limits Toxicology negative (2) Cerebellar infarct: Code(s): I63.9 - Cerebral infarction, unspecified Status: Acute Assessment and Plan: Possibly secondary to CVA versus noncompliant with psych medication CT of the head indicate left cerebellum infarctlikely subacute or chronic MRI delayed due to unsure of whether patient has metal implants or not. We will request documentation from patient's prim PT OT recommend placement patient is not safe to discharge home Speech therapy for swallow eval and cognitive deficiency pending Continue Plavix and statins Continue neurochecks WBCs, lactic acid and chest x-ray all unremarkable and within normal limits (3) Acute hypokalemia: Code(s): E87.6 - Hypokalemia Status: Acute Assessment and Plan: Etiology unknown Potassium 2.4>3.2>2.5>3.4>3.1 Supplement (4) Hyperosmolar non-ketotic state due to type 2 diabetes mellitus: Code(s): E11.00 - Type 2 diabetes mellitus with hyperosmolarity without nonketotic hyperglycemic-hyperosmolar coma ([facility]) Status: Acute Assessment and Plan: Less than 300 greater than 500 on admission Secondary to noncompliance Accu-Chek with sliding scale and hypoglycemic protocol along with a diabetic diet A1c 9.1 (5) Acute renal failure: Code(s): N17.9 - Acute kidney failure, unspecified Status: Acute Assessment and Plan: Resolved Cr 1.24>1.09>0.86>0.85 Will avoid nephrotoxic agents renal Dose all medication (6) Hypertension: Code(s): I10 - Essential (primary) hypertension Status: Acute Assessment and Plan: stable Continue amlodipine 2.5 increase metoprolol to 37.5 twice daily due to tachycardia Continue vital signs Will adjust medication as needed (7) Bipolar affect, depressed: Code(s): F31.30 - Bipolar disorder, current episode depressed, mild or moderate severity, unspecified Status: Acute Assessment and Plan: Noncompliant Will Attempt to place patient in behavioral health continue home medication (8) Peripheral edema: Code(s): R60.9 - Edema, unspecified Status: Acute Assessment and Plan: Will add diuretics as needed (9) Ileus: Code(s): K56.7 - Ileus, unspecified Status: Acute Assessment and Plan: CT of the abdomen indicate ileus without obstruction Patient remained n.p.o. overnight Added Reglan will also start Protonix occult blood pending Will continue to monitor Subjective Date/time seen: 10/12/21 09:34 Interval history: Patient remains lethargic but her mental status has improved since admission. She is able to answer more questions and follow some commands. MRI unable to be completed due to unknown history of where the has implants in placed . We will request patient's records from her primary care physician. Patient is estranged from family members and lives with her boyfriend who is currently making decisions concerning her health. Did receive report overnight the patient sats dropped in the mid 80s chest x-ray completed no acute change. ABGs not terribly abnormal. The patient had some nausea and vomiting
[2021-10-12] MEDS: POTASSIUM CHLORIDE 20 MEQ PACKET (FOR LIQUID) 40 MEQ PO ×2 (10:00→18:11)
--- NOTE | 2021-10-12 10:18 | STIPEVAL ---
Thank you for referring Kayla Huynh to [facility].? The patient is scheduled to be seen for therapy? 3-5x/week for 2 weeks. Please review, sign, date and return this plan of care MALGORZATA. I agree with and certify that the following plan of care is medically necessary. Referring Physician Date Admitting Provider: Michael Jimenez MD Attending Provider: Michael Jimenez MD Referring Provider: ALLIE Inpatient Evaluation Start: 10/12/21 09:53 Freq: Status: Active Protocol: Document 10/12/21 08:20 MJB (Rec: 10/12/21 10:18 MJB [id number]) Therapy Assessment Status Assessment Status Assessment Status Evaluation Prior Level of Function Prior Swallow Level Prior Intake Method Oral Prior Diet Regular (Level 7 Diet) Prior Liquid Consistency Thin (Level 0 Diet) Comments Additional Prior Level of Function Patient was a very poor Comments historian therefore PLOF was difficult to obtain. Pain Assessment Timing of Pain Assessment Timing of Pain Assessment Assessment Self Report Self Report Pain Level 0 Pain Score Pain Score 0: Self Report Bedside Swallow Evaluation General Reports Dysphagia EVAL due to new CVA History of Related Medical Diagnosis CVA Related History Either acute or chronic Meal Observed Snack Intake Method Prior to Swallow NPO Evaluation Cognition During Swallowing Confused,Impulsive Self-Feeding Behaviors Uncoordinated Orthodontic/Dental Appliances Edentulous Consistency Pureed Consistency 5 mL Method of Presentation Spoon Behaviors Observed Multiple Swallows Used,Oral Residue Occurrence of Coughing None Vocal Quality After Swallowing Clear Swallow Palpation Results Delayed Triggering Thin 5 mL Other Swallow Amount water Method of Presentation straw and spoon Behaviors Observed Multiple Swallows Used Occurrence of Coughing None Vocal Quality After Swallowing Clear Swallow Palpation Results Delayed Triggering Tolerance Tolerance For Swallow Slight Distress Alertness Lethargic/Unsafe Cooperativeness Calm Attention Impulsive Awareness of Swallowing Problem Unaware Awareness of Secretions Aware Postural Control Needs Assistance Fatigability Fatigues Easily Ability to Follow Directions Needs Demonstration Limiting Factors of Swallow Function Behavior,Confusion Limiting Factors Comments Patient is bipolar and has been off her psych medication.
[2021-10-12] MEDS: ATORVASTATIN 40 MG TABLET 80 MG PO (10:20)
[2021-10-12] MEDS: ARIPiprazole 5 MG TABLET PO (10:22)
[2021-10-12] MEDS: MAGNESIUM CHLORIDE 64 MG TABLET PO (10:23)
[2021-10-12] MEDS: lamoTRIgine 100 MG TABLET 200 MG PO ×2 (10:24→18:09)
[2021-10-12] MEDS: PARoxetine 20 MG TABLET PO (10:24)
[2021-10-12] MEDS: GABAPENTIN 300 MG CAPSULE PO ×2 (10:33→18:09)
[2021-10-12] MEDS: TOLNAFTATE 1% POWDER 45 GM BTL 1 APPLIC TOPICAL ×2 (10:41→21:53)
--- NOTE | 2021-10-12 11:14 | PM.EVENT ---
Event Note Event Note Event Note: Spoke with patient's significant other and her aunt. It was determined by both that her will, peer on Thursday to sign patient's power of ip technology transactions attorney documentations.
[2021-10-12 12:20] LABS: Glucose Point of Care 246 mg/dl (65-105)
--- NOTE | 2021-10-12 12:50 | PC.NURSE ---
Addendum entered by Ashley Grant RN 10/12/21 13:02: Nimo stated she thinks the patient may have pins in her left shoulder from a previous shoulder surgery. Original Note: Spoke with patient product sales representative Nimo Reed(patients aunt) Consent obtained by Nimo to request patient history from primary doctors office, Wan ALFORD at [facility]. FEATHER SAWYER spoke with patients aunt and son and they decided to make Nimo patients POA, would like to have paperwork done on Thursday. This nurse notified Hailey PEREZ
[2021-10-12] MEDS: NYSTATIN 100,000 UNITS/ML SUSP 5 ML ORAL.SUSP PO ×3 (13:00→21:40)
[2021-10-12] MEDS: ACETAMINOPHEN 325 MG TABLET 650 MG PO ×2 (14:56→21:40)
[2021-10-12 18:11] LABS: Glucose Point of Care 200 mg/dl (65-105)
[2021-10-12 20:56] LABS: Glucose Point of Care 274 mg/dl (65-105)
[2021-10-12] MEDS: PANTOPRAZOLE SODIUM IV 40 MG VIAL IV PUSH (21:39)
[2021-10-12] MEDS: METOPROLOL SUCCINATE EXT REL 12.5 MG, METOPROLOL SUCCINATE EXT REL 25 MG 37.5 MG PO (21:39)
[2021-10-12] MEDS: QUEtiapine FUMARATE 100 MG TABLET 300 MG PO (21:40)
[2021-10-12] MEDS: traZODone HCL 50 MG TABLET 100 MG PO (21:40)
[2021-10-13] VITALS (13 sets, daily range): BP systolic 108–148; BP diastolic 69–90; PULSE 76–95; RESP 12–18; TEMP 36.1–36.4; O2SAT 92–98
--- NOTE | 2021-10-13 01:37 | WPDPN ---
Progress Note: A&P Assessment and Plan (1) Altered mental status: Code(s): R41.82 - Altered mental status, unspecified Status: Acute Assessment and Plan: Possibly secondary to CVA versus noncompliant with psych medication CT of the head indicate left cerebellum infarctlikely subacute or chronic MRI delayed due to unsure of whether patient has metal implants or not. We will request documentation from patient's primary care physician on Thursday echo indicate diastolic dysfunction abnormal PT OT recommend placement patient is not safe to discharge home Speech therapy for swallow eval and cognitive deficiency pending Continue Plavix and statins Continue neurochecks WBCs, lactic acid and chest x-ray all unremarkable and within normal limits Toxicology negative (2) Cerebellar infarct: Code(s): I63.9 - Cerebral infarction, unspecified Status: Acute Assessment and Plan: Possibly secondary to CVA versus noncompliant with psych medication CT of the head indicate left cerebellum infarctlikely subacute or chronic MRI delayed due to unsure of whether patient has metal implants or not. We will request documentation from patient's prim PT OT recommend placement patient is not safe to discharge home Speech therapy for swallow eval and cognitive deficiency pending Continue Plavix and statins Continue neurochecks WBCs, lactic acid and chest x-ray all unremarkable and within normal limits (3) Acute hypokalemia: Code(s): E87.6 - Hypokalemia Status: Acute Assessment and Plan: Etiology unknown Potassium 2.4>3.2>2.5>3.4>3.1 Supplement (4) Hyperosmolar non-ketotic state due to type 2 diabetes mellitus: Code(s): E11.00 - Type 2 diabetes mellitus with hyperosmolarity without nonketotic hyperglycemic-hyperosmolar coma ([facility]) Status: Acute Assessment and Plan: Less than 300 greater than 500 on admission Secondary to noncompliance Accu-Chek with sliding scale and hypoglycemic protocol along with a diabetic diet A1c 9.1 (5) Acute renal failure: Code(s): N17.9 - Acute kidney failure, unspecified Status: Acute Assessment and Plan: Resolved Cr 1.24>1.09>0.86>0.85 Will avoid nephrotoxic agents renal Dose all medication (6) Hypertension: Code(s): I10 - Essential (primary) hypertension Status: Acute Assessment and Plan: stable Continue amlodipine 2.5 increase metoprolol to 37.5 twice daily due to tachycardia Continue vital signs Will adjust medication as needed (7) Bipolar affect, depressed: Code(s): F31.30 - Bipolar disorder, current episode depressed, mild or moderate severity, unspecified Status: Acute Assessment and Plan: Noncompliant Will Attempt to place patient in behavioral health continue home medication (8) Peripheral edema: Code(s): R60.9 - Edema, unspecified Status: Acute Assessment and Plan: Will add diuretics as needed (9) Ileus: Code(s): K56.7 - Ileus, unspecified Status: Acute Assessment and Plan: CT of the abdomen indicate ileus without obstruction Patient remained n.p.o. overnight Added Reglan will also start Protonix occult blood pending Will continue to monitor Subjective Date/time seen: 10/13/21 01:37 Interval history: Patient remains lethargic but her mental status has improved since admission. She is able to answer more questions and follow some commands. MRI unable to be completed due to unknown history of where the has implants in placed . We will request patient's records from her primary care physician. Patient is estranged from family members and lives with her boyfriend who is currently making decisions concerning her health. According to patient's significant other and her aunt decision making will be left up to the aunt. She will be appear Thursday for paperwork Review of Systems Review of Systems
[2021-10-13] MEDS: METOCLOPRAMIDE HCL INJ 10 MG/2 ML VIAL 5 MG IV PUSH ×4 (05:35→23:16)
[2021-10-13] MEDS: LEVOTHYROXINE SODIUM 25 MCG TABLET PO (05:36)
[2021-10-13] MEDS: ACETAMINOPHEN 325 MG TABLET 650 MG PO ×3 (05:36→21:15)
[2021-10-13 05:39] LABS: Hematocrit 29.5 % (35.0-49.0); Hemoglobin 9.2 g/dL (12.0-15.0); Mean Corpuscular HGB Conc 31.2 g/dL (32.0-36.0); Mean Corpuscular Hemoglobin 27.9 pg (27.0-31.0); Mean Corpuscular Volume 89.4 fL (78.0-102.0); Platelet Count Result 182 K/mm3 (150-420); Red Cell Distribution Width 15.7 % (11.6-14.4); White Blood Count 7.5 K/mm3 (4.8-10.8)
[2021-10-13 05:55] LABS: Alanine Aminotransferase 40 U/L (14-59); Alkaline Phosphatase 122 U/L (46-116); Anion Gap 12 mmol/L (8-16); Aspartate Amino Transferase 52 U/L (15-37); Bilirubin,Total 0.5 mg/dL (0.00-1.00); Blood Urea Nitrogen 5 mg/dL (7-18); Calcium 8.9 mg/dL (8.5-10.1); Carbon Dioxide 27 mmol/L (21-32); Chloride 104 mmol/L (98-108); Estimated CRCL calculation 85 ml/min; Estimated Glomerular Filt Rate > 60; Glucose 221 mg/dL (70-99); Osmolality Calculated 300 mOsm/kg (285-295); Potassium 3.1 mmol/L (3.5-5.1); Sodium 143 mmol/L (136-145)
[2021-10-13] MEDS: METOPROLOL SUCCINATE EXT REL 12.5 MG, METOPROLOL SUCCINATE EXT REL 25 MG 37.5 MG PO ×2 (09:00→21:14)
[2021-10-13] MEDS: NYSTATIN 100,000 UNITS/ML SUSP 5 ML ORAL.SUSP PO ×4 (09:20→21:14)
[2021-10-13] MEDS: MAGNESIUM CHLORIDE 64 MG TABLET PO (09:20)
[2021-10-13] MEDS: PANTOPRAZOLE SODIUM IV 40 MG VIAL IV PUSH ×2 (09:21→21:14)
[2021-10-13] MEDS: ARIPiprazole 5 MG TABLET PO (09:21)
[2021-10-13] MEDS: POTASSIUM CHLORIDE 20 MEQ PACKET (FOR LIQUID) 40 MEQ PO ×3 (09:21→17:09)
[2021-10-13] MEDS: ATORVASTATIN 40 MG TABLET 80 MG PO (09:22)
[2021-10-13] MEDS: METOPROLOL SUCCINATE EXT REL 25 MG TABCR (09:22)
[2021-10-13] MEDS: lamoTRIgine 100 MG TABLET 200 MG PO ×2 (09:22→17:10)
[2021-10-13] MEDS: GABAPENTIN 300 MG CAPSULE PO ×2 (09:23→17:10)
[2021-10-13] MEDS: PARoxetine 20 MG TABLET PO (09:23)
[2021-10-13] MEDS: TOLNAFTATE 1% POWDER 45 GM BTL 1 APPLIC TOPICAL ×2 (09:50→20:31)
[2021-10-13] MEDS: DEXTROSE 5%/0.9% SOD CHL 1,000 ML 75 ML IV CONT (13:10)
[2021-10-13 16:28] LABS: Glucose Point of Care 206 mg/dl (65-105)
[2021-10-13 17:33] LABS: Glucose Point of Care 219 mg/dl (65-105)
[2021-10-13 20:36] LABS: Glucose Point of Care 183 mg/dl (65-105)
[2021-10-13] MEDS: traZODone HCL 50 MG TABLET 100 MG PO (21:15)
[2021-10-13] MEDS: QUEtiapine FUMARATE 100 MG TABLET 300 MG PO (21:15)
[2021-10-14] VITALS (12 sets, daily range): BP systolic 105–147; BP diastolic 60–95; PULSE 72–91; RESP 12–18; TEMP 35.3–36.6; O2SAT 94–98
[2021-10-14] MEDS: DEXTROSE 5%/0.9% SOD CHL 1,000 ML 75 ML IV CONT ×2 (01:38→16:35)
[2021-10-14 05:16] LABS: Hematocrit 28.5 % (35.0-49.0); Mean Corpuscular HGB Conc 31.6 g/dL (32.0-36.0); Mean Corpuscular Hemoglobin 28.1 pg (27.0-31.0); Mean Corpuscular Volume 89.1 fL (78.0-102.0); Mean Platelet Volume 10.7 fl (9.2-11.8); Platelet Count Result 192 K/mm3 (150-420); Red Cell Distribution Width 15.6 % (11.6-14.4); White Blood Count 5.5 K/mm3 (4.8-10.8)
[2021-10-14 05:32] LABS: Alanine Aminotransferase 43 U/L (14-59); Albumin Level 1.9 g/dL (3.4-5.0); Alkaline Phosphatase 121 U/L (46-116); Anion Gap 11 mmol/L (8-16); Aspartate Amino Transferase 47 U/L (15-37); Bilirubin,Total 0.3 mg/dL (0.00-1.00); Blood Urea Nitrogen 6 mg/dL (7-18); Calcium 9.1 mg/dL (8.5-10.1); Carbon Dioxide 27 mmol/L (21-32); Chloride 104 mmol/L (98-108); Estimated CRCL calculation 79 ml/min; Estimated Glomerular Filt Rate > 60; Glucose 186 mg/dL (70-99); Osmolality Calculated 296 mOsm/kg (285-295); Potassium 3.2 mmol/L (3.5-5.1); Sodium 142 mmol/L (136-145); Total Protein 6.7 g/dL (6.4-8.2)
[2021-10-14] MEDS: METOCLOPRAMIDE HCL INJ 10 MG/2 ML VIAL 5 MG IV PUSH ×3 (05:58→17:26)
[2021-10-14] MEDS: ACETAMINOPHEN 325 MG TABLET 650 MG PO ×2 (06:00→21:19)
[2021-10-14] MEDS: LEVOTHYROXINE SODIUM 25 MCG TABLET PO (06:00)
--- NOTE | 2021-10-14 06:14 | PC.NURSE ---
This RN told the pt Nimisha to have a nice day and the pt responded w/ You too hun. The pt also stated she hopes she gets better soon. Pt seems to be more aware of her surroundings comparatively to her orientation the previous 2 days. Pt is also more communicative. The pt still has moments of silence w/no reply, but is answering questions more appropriately each day. Call light is w/in reach and room light left on due to pt stating she is ready to be awake for the day.
[2021-10-14] MEDS: POTASSIUM CHLORIDE 20 MEQ PACKET (FOR LIQUID) 40 MEQ PO ×2 (09:08→16:40)
[2021-10-14] MEDS: METOPROLOL SUCCINATE EXT REL 12.5 MG, METOPROLOL SUCCINATE EXT REL 25 MG 37.5 MG PO ×2 (09:08→21:14)
[2021-10-14] MEDS: amLODIPine BESYLATE 2.5 MG TABLET PO (09:12)
[2021-10-14] MEDS: PANTOPRAZOLE SODIUM IV 40 MG VIAL IV PUSH ×2 (09:15→21:13)
[2021-10-14] MEDS: lamoTRIgine 100 MG TABLET 200 MG PO ×2 (09:16→16:34)
[2021-10-14] MEDS: ARIPiprazole 5 MG TABLET PO (09:19)
[2021-10-14] MEDS: GABAPENTIN 300 MG CAPSULE PO ×2 (09:19→16:34)
--- NOTE | 2021-10-14 09:19 | P.PN_ITS ---
Progress Note: A&P Assessment and Plan (1) Altered mental status: Code(s): R41.82 - Altered mental status, unspecified Status: Acute Assessment and Plan: * Possibly secondary to CVA versus noncompliant with psych medication versus overdose of * CT of the head indicate left cerebellum infarctlikely subacute or chronic * MRI delayed due to unsure of whether patient has metal implants or not. We will request documentation from patient's primary care physician on Thursday * echo indicate diastolic dysfunction abnormal * PT OT recommend placement patient is not safe to discharge home * Speech therapy for swallow eval and cognitive deficiency unable to complete due to patient's mental status * Continue Plavix and statins * Continue neurochecks * WBCs, lactic acid and chest x-ray all unremarkable and within normal limits * Toxicology negative * CTA of the neck and head pending * SH in vitamin B12 with folate pending (2) Cerebellar infarct: Code(s): I63.9 - Cerebral infarction, unspecified Status: Acute Assessment and Plan: * Possibly secondary to CVA versus noncompliant with psych medication * CT of the head indicate left cerebellum infarctlikely subacute or chronic * MRI delayed due to unsure of whether patient has metal implants or not. We will request documentation from patient's prim * PT OT recommend placement patient is not safe to discharge home * Speech therapy for swallow eval and cognitive deficiency pending * Continue Plavix and statins * Continue neurochecks * WBCs, lactic acid and chest x-ray all unremarkable and within normal limits * CTA of the neck and head pending * vitamin B12 with folate pending (3) Acute hypokalemia: Code(s): E87.6 - Hypokalemia Status: Acute Assessment and Plan: * Etiology unknown * Potassium 2.4>3.2>2.5>3.4>3.1 * Supplement (4) Hyperosmolar non-ketotic state due to type 2 diabetes mellitus: Code(s): E11.00 - Type 2 diabetes mellitus with hyperosmolarity without nonketotic hyperglycemic-hyperosmolar coma ([facility]) Status: Acute Assessment and Plan: * Less than 300 greater than 500 on admission * Secondary to noncompliance * Accu-Chek with sliding scale and hypoglycemic protocol along with a diabetic diet * A1c 9.1 (5) Acute renal failure: Code(s): N17.9 - Acute kidney failure, unspecified Status: Acute Assessment and Plan: * Resolved * Cr 1.24>1.09>0.86>0.85 * Will avoid nephrotoxic agents * renal Dose all medication (6) Hypertension: Code(s): I10 - Essential (primary) hypertension Status: Acute Assessment and Plan: * stable * Continue amlodipine 2.5 increase metoprolol to 37.5 twice daily due to tachycardia * Continue vital signs * Will adjust medication as needed (7) Bipolar affect, depressed: Code(s): F31.30 - Bipolar disorder, current episode depressed, mild or moderate severity, unspecified Status: Acute Assessment and Plan: * Noncompliant * Will Attempt to place [facility] in [facility] * continue home medication (8) Peripheral edema: Code(s): R60.9 - Edema, unspecified Status: Acute Assessment and Plan: * Will add diuretics as needed (9) Ileus: Code(s): K56.7 - Ileus, unspecified Status: Acute Assessment and Plan: * Resolved * CT of the abdomen indicate ileus without obstruction * Patient remained n.p.o. overnight * Added Reglan will also start Protonix * Subjective Date/time seen: 10/14/21 0
--- NOTE | 2021-10-14 09:19 | WPDPN ---
Progress Note: A&P Assessment and Plan (1) Altered mental status: Code(s): R41.82 - Altered mental status, unspecified Status: Acute Assessment and Plan: Possibly secondary to CVA versus noncompliant with psych medication versus overdose of CT of the head indicate left cerebellum infarctlikely subacute or chronic MRI delayed due to unsure of whether patient has metal implants or not. We will request documentation from patient's primary care physician on Thursday echo indicate diastolic dysfunction abnormal PT OT recommend placement patient is not safe to discharge home Speech therapy for swallow eval and cognitive deficiency unable to complete due to patient's mental status Continue Plavix and statins Continue neurochecks WBCs, lactic acid and chest x-ray all unremarkable and within normal limits Toxicology negative CTA of the neck and head pending SH in vitamin B12 with folate pending (2) Cerebellar infarct: Code(s): I63.9 - Cerebral infarction, unspecified Status: Acute Assessment and Plan: Possibly secondary to CVA versus noncompliant with psych medication CT of the head indicate left cerebellum infarctlikely subacute or chronic MRI delayed due to unsure of whether patient has metal implants or not. We will request documentation from patient's prim PT OT recommend placement patient is not safe to discharge home Speech therapy for swallow eval and cognitive deficiency pending Continue Plavix and statins Continue neurochecks WBCs, lactic acid and chest x-ray all unremarkable and within normal limits CTA of the neck and head pending vitamin B12 with folate pending (3) Acute hypokalemia: Code(s): E87.6 - Hypokalemia Status: Acute Assessment and Plan: Etiology unknown Potassium 2.4>3.2>2.5>3.4>3.1 Supplement (4) Hyperosmolar non-ketotic state due to type 2 diabetes mellitus: Code(s): E11.00 - Type 2 diabetes mellitus with hyperosmolarity without nonketotic hyperglycemic-hyperosmolar coma ([facility]) Status: Acute Assessment and Plan: Less than 300 greater than 500 on admission Secondary to noncompliance Accu-Chek with sliding scale and hypoglycemic protocol along with a diabetic diet A1c 9.1 (5) Acute renal failure: Code(s): N17.9 - Acute kidney failure, unspecified Status: Acute Assessment and Plan: Resolved Cr 1.24>1.09>0.86>0.85 Will avoid nephrotoxic agents renal Dose all medication (6) Hypertension: Code(s): I10 - Essential (primary) hypertension Status: Acute Assessment and Plan: stable Continue amlodipine 2.5 increase metoprolol to 37.5 twice daily due to tachycardia Continue vital signs Will adjust medication as needed (7) Bipolar affect, depressed: Code(s): F31.30 - Bipolar disorder, current episode depressed, mild or moderate severity, unspecified Status: Acute Assessment and Plan: Noncompliant Will Attempt to place patient in [facility] continue home medication (8) Peripheral edema: Code(s): R60.9 - Edema, unspecified Status: Acute Assessment and Plan: Will add diuretics as needed (9) Ileus: Code(s): K56.7 - Ileus, unspecified Status: Acute Assessment and Plan: Resolved CT of the abdomen indicate ileus without obstruction Patient remained n.p.o. overnight Added Reglan will also start Protonix Subjective Date/time seen: 10/14/21 09:19 Interval history: Patient remains lethargic but her mental status has improved since admission. She is able to answer more questions and follow some commands. MRI unable to be completed due to unknown history of where the has implants in placed . We will request patient's records from her primary care physician. Patient is estranged from family members and lives with her boyfriend who is currently making decisions concerning her health. According to judy
[2021-10-14] MEDS: NYSTATIN 100,000 UNITS/ML SUSP 5 ML ORAL.SUSP PO ×3 (09:20→21:13)
[2021-10-14] MEDS: PARoxetine 20 MG TABLET PO (09:21)
[2021-10-14] MEDS: ATORVASTATIN 40 MG TABLET 80 MG PO (09:22)
[2021-10-14] MEDS: TOLNAFTATE 1% POWDER 45 GM BTL 1 APPLIC TOPICAL ×2 (09:30→22:09)
[2021-10-14] MEDS: MAGNESIUM CHLORIDE 64 MG TABLET PO (09:30)
[2021-10-14 10:02] LABS: Folic Acid 4.4 ng/mL (8.6->20); Vitamin B12 904 pg/mL (193-986)
[2021-10-14 11:40] LABS: Glucose Point of Care 240 mg/dl (65-105)
--- NOTE | 2021-10-14 12:20 | PC.NURSE ---
faxed release of medical record to [facility]
[2021-10-14] MEDS: LORazepam INJ (*CRX) 2 MG/ML VIAL 1 MG IV PUSH (15:32)
[2021-10-14 16:30] LABS: Glucose Point of Care 159 mg/dl (65-105)
[2021-10-14] MEDS: QUEtiapine FUMARATE 100 MG TABLET 300 MG PO (21:13)
[2021-10-14] MEDS: traZODone HCL 50 MG TABLET 100 MG PO (21:14)
[2021-10-14 22:03] LABS: Glucose Point of Care 163 mg/dl (65-105)
[2021-10-15] VITALS (9 sets, daily range): BP systolic 80–128; BP diastolic 52–71; PULSE 64–76; RESP 16–20; TEMP 35.7–36.6; O2SAT 92–98
[2021-10-15] MEDS: METOCLOPRAMIDE HCL INJ 10 MG/2 ML VIAL 5 MG IV PUSH ×4 (00:11→19:16)
[2021-10-15 04:28] LABS: Glucose Point of Care 171 mg/dl (65-105)
--- NOTE | 2021-10-15 04:31 | PC.NURSE ---
Isabel Kovacs [employer] notified of 80/52 pressure manually, harder to arouse, noted bedside glucose 171, order for bolus of normal saline received
[2021-10-15] MEDS: SODIUM CHLORIDE 0.9% IV 1,000 ML 999 ML IV CONT (04:34)
[2021-10-15 05:05] LABS: Hematocrit 29.2 % (35.0-49.0); Hemoglobin 8.8 g/dL (12.0-15.0); Mean Corpuscular HGB Conc 30.1 g/dL (32.0-36.0); Mean Corpuscular Hemoglobin 26.7 pg (27.0-31.0); Mean Corpuscular Volume 88.8 fL (78.0-102.0); Mean Platelet Volume 10.4 fl (9.2-11.8); Platelet Count Result 240 K/mm3 (150-420); Red Blood Count 3.29 M/mm3 (4.20-5.40); Red Cell Distribution Width 15.7 % (11.6-14.4); White Blood Count 5.7 K/mm3 (4.8-10.8)
[2021-10-15 05:24] LABS: Alanine Aminotransferase 40 U/L (14-59); Alkaline Phosphatase 120 U/L (46-116); Anion Gap 9 mmol/L (8-16); Aspartate Amino Transferase 34 U/L (15-37); Bilirubin,Total 0.3 mg/dL (0.00-1.00); Blood Urea Nitrogen 7 mg/dL (7-18); Calcium 9.5 mg/dL (8.5-10.1); Carbon Dioxide 27 mmol/L (21-32); Chloride 106 mmol/L (98-108); Estimated CRCL calculation 80 ml/min; Estimated Glomerular Filt Rate > 60; Glucose 164 mg/dL (70-99); Osmolality Calculated 296 mOsm/kg (285-295); Potassium 3.2 mmol/L (3.5-5.1); Sodium 142 mmol/L (136-145); Total Protein 6.4 g/dL (6.4-8.2)
[2021-10-15] MEDS: ACETAMINOPHEN 325 MG TABLET 650 MG PO ×3 (06:01→21:27)
[2021-10-15] MEDS: LEVOTHYROXINE SODIUM 25 MCG TABLET PO (06:34)
[2021-10-15 07:40] LABS: Glucose Point of Care 180 mg/dl (65-105)
[2021-10-15] MEDS: DEXTROSE 5%/0.9% SOD CHL 1,000 ML 75 ML IV CONT (08:24)
[2021-10-15] MEDS: POTASSIUM CHLORIDE 20 MEQ PACKET (FOR LIQUID) 40 MEQ PO ×2 (08:27→17:12)
[2021-10-15] MEDS: NYSTATIN 100,000 UNITS/ML SUSP 5 ML ORAL.SUSP PO ×4 (08:27→21:23)
[2021-10-15] MEDS: PANTOPRAZOLE SODIUM IV 40 MG VIAL IV PUSH ×2 (08:27→21:23)
[2021-10-15] MEDS: polyethylene glycoL 3350 17 GM POWD.PACK PO (08:28)
[2021-10-15] MEDS: PARoxetine 20 MG TABLET PO (08:28)
[2021-10-15] MEDS: lamoTRIgine 100 MG TABLET 200 MG PO ×2 (08:28→17:11)
[2021-10-15] MEDS: DOCUSATE SODIUM 100 MG CAPSULE PO ×2 (08:29→21:22)
[2021-10-15] MEDS: ATORVASTATIN 40 MG TABLET 80 MG PO (08:29)
[2021-10-15] MEDS: GABAPENTIN 300 MG CAPSULE PO ×2 (08:29→17:11)
[2021-10-15] MEDS: METOPROLOL SUCCINATE EXT REL 25 MG TABCR (08:30)
[2021-10-15] MEDS: METOPROLOL SUCCINATE EXT REL 12.5 MG, METOPROLOL SUCCINATE EXT REL 25 MG 37.5 MG PO (08:30)
[2021-10-15] MEDS: TOLNAFTATE 1% POWDER 45 GM BTL 1 APPLIC TOPICAL ×2 (09:00→21:26)
--- NOTE | 2021-10-15 10:19 | P.DS_ITS ---
DS: Admitting Diagnosis Discharge Date 10/15/2021 Admitting Diagnosis Hyperglycemia with altered mental status DS: Discharge Diagnosis Discharge Diagnosis (1) Altered mental status: Code(s): R41.82 - Altered mental status, unspecified Status: Acute Assessment and Plan: * Imaging indicate CVA * Possibly secondary to CVA versus noncompliant with psych medication versus overdose of * CT of the head indicate left cerebellum infarctlikely subacute or chronic * MRI delayed due to unsure of whether patient has metal implants or not. We will request documentation from patient's primary care physician on Thursday * echo indicate diastolic dysfunction abnormal * PT OT recommend placement patient is not safe to discharge home * Speech therapy for swallow eval and cognitive deficiency unable to complete due to patient's mental status * Continue Plavix and statins * Continue neurochecks * WBCs, lactic acid and chest x-ray all unremarkable and within normal limits * Toxicology negative * CTA of the neck and head indicate CVA * (2) Cerebellar infarct: Code(s): I63.9 - Cerebral infarction, unspecified Status: Acute Assessment and Plan: * Possibly secondary to CVA versus noncompliant with psych medication * CT of the head indicate left cerebellum infarctlikely subacute or chronic * MRI delayed due to unsure of whether patient has metal implants or not. We will request documentation from patient's prim * PT OT recommend placement patient is not safe to discharge home * Speech therapy for swallow eval and cognitive deficiency pending * Continue Plavix and statins * Continue neurochecks * WBCs, lactic acid and chest x-ray all unremarkable and within normal limits * CTA of the neck and head indicate CVA * vitamin B12 normal with folate decreased (3) Acute hypokalemia: Code(s): E87.6 - Hypokalemia Status: Acute Assessment and Plan: * Etiology unknown * Potassium 2.4>3.2>2.5>3.4>3.1 * Supplement (4) Hyperosmolar non-ketotic state due to type 2 diabetes mellitus: Code(s): E11.00 - Type 2 diabetes mellitus with hyperosmolarity without nonketotic hyperglycemic-hyperosmolar coma ([facility]) Status: Acute Assessment and Plan: * Less than 300 greater than 500 on admission * Secondary to noncompliance * Accu-Chek with sliding scale and hypoglycemic protocol along with a diabetic diet * A1c 9.1 (5) Acute renal failure: Code(s): N17.9 - Acute kidney failure, unspecified Status: Acute Assessment and Plan: * Resolved * Cr 1.24>1.09>0.86>0.85 * Will avoid nephrotoxic agents * renal Dose all medication (6) Hypertension: Code(s): I10 - Essential (primary) hypertension Status: Acute Assessment and Plan: * stable * Continue amlodipine 2.5 increase metoprolol to 37.5 twice daily due to tachycardia * BP medication may need to be adjusted * Continue vital signs * Will adjust medication as needed (7) Bipolar affect, depressed: Code(s): F31.30 - Bipolar disorder, current episode depressed, mild or moderate severity, unspecified Status: Acute Assessment and Plan: * Noncompliant * Will Attempt to place patient in rehab * continue home medication (8) Peripheral edema: Code(s): R60.9 - Edema, unspecified Status: Acute Assessment and Plan: * Will add diuretics as needed (9) Ileus: Code(s): K56.7 - Ileus, unspecified Status: Acute Assessment and Plan: * Resolved * CT of the abdo
--- NOTE | 2021-10-15 10:19 | PM.DS ---
DS: Admitting Diagnosis Discharge Date 10/15/2021 Admitting Diagnosis Hyperglycemia with altered mental status DS: Discharge Diagnosis Discharge Diagnosis (1) Altered mental status: Code(s): R41.82 - Altered mental status, unspecified Status: Acute Assessment and Plan: Imaging indicate CVA Possibly secondary to CVA versus noncompliant with psych medication versus overdose of CT of the head indicate left cerebellum infarctlikely subacute or chronic MRI delayed due to unsure of whether patient has metal implants or not. We will request documentation from patient's primary care physician on Thursday echo indicate diastolic dysfunction abnormal PT OT recommend placement patient is not safe to discharge home Speech therapy for swallow eval and cognitive deficiency unable to complete due to patient's mental status Continue Plavix and statins Continue neurochecks WBCs, lactic acid and chest x-ray all unremarkable and within normal limits Toxicology negative CTA of the neck and head indicate CVA (2) Cerebellar infarct: Code(s): I63.9 - Cerebral infarction, unspecified Status: Acute Assessment and Plan: Possibly secondary to CVA versus noncompliant with psych medication CT of the head indicate left cerebellum infarctlikely subacute or chronic MRI delayed due to unsure of whether patient has metal implants or not. We will request documentation from patient's prim PT OT recommend placement patient is not safe to discharge home Speech therapy for swallow eval and cognitive deficiency pending Continue Plavix and statins Continue neurochecks WBCs, lactic acid and chest x-ray all unremarkable and within normal limits CTA of the neck and head indicate CVA vitamin B12 normal with folate decreased (3) Acute hypokalemia: Code(s): E87.6 - Hypokalemia Status: Acute Assessment and Plan: Etiology unknown Potassium 2.4>3.2>2.5>3.4>3.1 Supplement (4) Hyperosmolar non-ketotic state due to type 2 diabetes mellitus: Code(s): E11.00 - Type 2 diabetes mellitus with hyperosmolarity without nonketotic hyperglycemic-hyperosmolar coma ([facility]) Status: Acute Assessment and Plan: Less than 300 greater than 500 on admission Secondary to noncompliance Accu-Chek with sliding scale and hypoglycemic protocol along with a diabetic diet A1c 9.1 (5) Acute renal failure: Code(s): N17.9 - Acute kidney failure, unspecified Status: Acute Assessment and Plan: Resolved Cr 1.24>1.09>0.86>0.85 Will avoid nephrotoxic agents renal Dose all medication (6) Hypertension: Code(s): I10 - Essential (primary) hypertension Status: Acute Assessment and Plan: stable Continue amlodipine 2.5 increase metoprolol to 37.5 twice daily due to tachycardia BP medication may need to be adjusted Continue vital signs Will adjust medication as needed (7) Bipolar affect, depressed: Code(s): F31.30 - Bipolar disorder, current episode depressed, mild or moderate severity, unspecified Status: Acute Assessment and Plan: Noncompliant Will Attempt to place patient in rehab continue home medication (8) Peripheral edema: Code(s): R60.9 - Edema, unspecified Status: Acute Assessment and Plan: Will add diuretics as needed (9) Ileus: Code(s): K56.7 - Ileus, unspecified Status: Acute Assessment and Plan: Resolved CT of the abdomen indicate ileus without obstruction Patient remained n.p.o. overnight Added Reglan will also start Protonix DS: Summary Hospital Course Reason for hospitalization: AMS Hospital Course: This is a 40-year-old female that is currently having auditory and visual hallucinations possibly secondary to noncompliance with psych meds versus CVA Patient has a past medical history of bipolar.? Patient is a poor historian all information obtained from medical rec
[2021-10-15 12:01] LABS: Glucose Point of Care 209 mg/dl (65-105)
[2021-10-15] MEDS: ARIPiprazole 5 MG TABLET PO (12:45)
[2021-10-15] MEDS: MAGNESIUM CHLORIDE 64 MG TABLET PO (12:45)
--- NOTE | 2021-10-15 12:56 | PC.NURSE ---
lunch blood sugar was checked after nurse started feeding pt. BS was 209. Nurse did not administer sliding scale per nurse judgement. OK vangie Hall
[2021-10-15 16:53] LABS: Glucose Point of Care 151 mg/dl (65-105)
[2021-10-15] MEDS: LORazepam INJ (*CRX) 2 MG/ML VIAL 1 MG IV PUSH (17:44)
[2021-10-15] MEDS: METOPROLOL TARTRATE 25 MG TABLET PO (21:22)
[2021-10-15] MEDS: traZODone HCL 50 MG TABLET 100 MG PO (21:22)
[2021-10-15] MEDS: QUEtiapine FUMARATE 100 MG TABLET 300 MG PO (21:23)
[2021-10-15] MEDS: INSULIN GLARGINE (*BKC) 100 UNITS/ML SUB-Q (21:26)
[2021-10-15 22:06] LABS: Glucose Point of Care 133 mg/dl (65-105)
[2021-10-16] VITALS: BP 117/63; PULSE 65; PULSE 74; RESP 16; TEMP 36.6; O2SAT 95
[2021-10-16] MEDS: METOCLOPRAMIDE HCL INJ 10 MG/2 ML VIAL 5 MG IV PUSH ×2 (00:16→06:01)
[2021-10-16 04:00] VITALS: BP 128/62; PULSE 54; PULSE 67; RESP 16; TEMP 36.1; O2SAT 92
[2021-10-16 05:06] LABS: Hematocrit 30.4 % (35.0-49.0); Hemoglobin 9.3 g/dL (12.0-15.0); Mean Corpuscular HGB Conc 30.6 g/dL (32.0-36.0); Mean Corpuscular Hemoglobin 27.2 pg (27.0-31.0); Mean Corpuscular Volume 88.9 fL (78.0-102.0); Mean Platelet Volume 10.2 fl (9.2-11.8); Platelet Count Result 251 K/mm3 (150-420); Red Blood Count 3.42 M/mm3 (4.20-5.40); Red Cell Distribution Width 15.7 % (11.6-14.4); White Blood Count 8.4 K/mm3 (4.8-10.8)
[2021-10-16 05:22] LABS: Alanine Aminotransferase 34 U/L (14-59); Alkaline Phosphatase 121 U/L (46-116); Anion Gap 7 mmol/L (8-16); Aspartate Amino Transferase 29 U/L (15-37); Bilirubin,Total 0.3 mg/dL (0.00-1.00); Blood Urea Nitrogen 7 mg/dL (7-18); Carbon Dioxide 27 mmol/L (21-32); Chloride 106 mmol/L (98-108); Estimated CRCL calculation 79 ml/min; Estimated Glomerular Filt Rate > 60; Glucose 142 mg/dL (70-99); Osmolality Calculated 290 mOsm/kg (285-295); Potassium 3.4 mmol/L (3.5-5.1); Sodium 140 mmol/L (136-145)
[2021-10-16] MEDS: ACETAMINOPHEN 325 MG TABLET 650 MG PO (06:02)
[2021-10-16] MEDS: LEVOTHYROXINE SODIUM 25 MCG TABLET PO (06:35)
[2021-10-16 07:46] LABS: Glucose Point of Care 165 mg/dl (65-105)
[2021-10-16 07:50] VITALS: BP 110/58; PULSE 58; RESP 18; TEMP 36.6; O2SAT 96
[2021-10-16 07:51] VITALS: PULSE 58
[2021-10-16] MEDS: NYSTATIN 100,000 UNITS/ML SUSP 5 ML ORAL.SUSP PO (08:01)
[2021-10-16] MEDS: PANTOPRAZOLE SODIUM IV 40 MG VIAL IV PUSH (08:01)
[2021-10-16] MEDS: ARIPiprazole 5 MG TABLET PO (08:02)
[2021-10-16] MEDS: PARoxetine 20 MG TABLET PO (08:03)
[2021-10-16] MEDS: DOCUSATE SODIUM 100 MG CAPSULE PO (08:03)
[2021-10-16] MEDS: POTASSIUM CHLORIDE 20 MEQ PACKET (FOR LIQUID) 40 MEQ PO (08:03)
[2021-10-16] MEDS: polyethylene glycoL 3350 17 GM POWD.PACK PO (08:03)
[2021-10-16] MEDS: GABAPENTIN 300 MG CAPSULE PO (08:03)
[2021-10-16] MEDS: ATORVASTATIN 40 MG TABLET 80 MG PO (08:03)
[2021-10-16] MEDS: MAGNESIUM CHLORIDE 64 MG TABLET PO (08:03)
[2021-10-16 08:04] VITALS: PULSE 56
[2021-10-16] MEDS: METOPROLOL TARTRATE 25 MG TABLET PO (08:04)
[2021-10-16] MEDS: TOLNAFTATE 1% POWDER 45 GM BTL 1 APPLIC TOPICAL (08:04)
[2021-10-16] MEDS: lamoTRIgine 100 MG TABLET 200 MG PO (08:04)
--- NOTE | 2021-10-16 09:11 | PM.DS ---
DS: Admitting Diagnosis Discharge Date 10/16/2021 Admitting Diagnosis Hyperglycemia with altered mental status DS: Discharge Diagnosis Discharge Diagnosis (1) Altered mental status: Code(s): R41.82 - Altered mental status, unspecified Status: Acute Assessment and Plan: Imaging indicate CVA Possibly secondary to CVA versus noncompliant with psych medication versus overdose of CT of the head indicate left cerebellum infarctlikely subacute or chronic MRI delayed due to unsure of whether patient has metal implants or not. We will request documentation from patient's primary care physician on Thursday echo indicate diastolic dysfunction abnormal PT OT recommend placement patient is not safe to discharge home Speech therapy for swallow eval and cognitive deficiency unable to complete due to patient's mental status Continue Plavix and statins Continue neurochecks WBCs, lactic acid and chest x-ray all unremarkable and within normal limits Toxicology negative CTA of the neck and head indicate CVA (2) Cerebellar infarct: Code(s): I63.9 - Cerebral infarction, unspecified Status: Acute Assessment and Plan: Possibly secondary to CVA versus noncompliant with psych medication CT of the head indicate left cerebellum infarctlikely subacute or chronic MRI delayed due to unsure of whether patient has metal implants or not. We will request documentation from patient's prim PT OT recommend placement patient is not safe to discharge home Speech therapy for swallow eval and cognitive deficiency pending Continue Plavix and statins Continue neurochecks WBCs, lactic acid and chest x-ray all unremarkable and within normal limits CTA of the neck and head indicate CVA vitamin B12 normal with folate decreased (3) Acute hypokalemia: Code(s): E87.6 - Hypokalemia Status: Acute Assessment and Plan: Etiology unknown Potassium 2.4>3.2>2.5>3.4>3.1 Supplement (4) Hyperosmolar non-ketotic state due to type 2 diabetes mellitus: Code(s): E11.00 - Type 2 diabetes mellitus with hyperosmolarity without nonketotic hyperglycemic-hyperosmolar coma ([facility]) Status: Acute Assessment and Plan: Less than 300 greater than 500 on admission Secondary to noncompliance Accu-Chek with sliding scale and hypoglycemic protocol along with a diabetic diet A1c 9.1 (5) Acute renal failure: Code(s): N17.9 - Acute kidney failure, unspecified Status: Acute Assessment and Plan: Resolved Cr 1.24>1.09>0.86>0.85 Will avoid nephrotoxic agents renal Dose all medication (6) Hypertension: Code(s): I10 - Essential (primary) hypertension Status: Acute Assessment and Plan: stable Continue amlodipine 2.5 increase metoprolol to 37.5 twice daily due to tachycardia BP medication may need to be adjusted Continue vital signs Will adjust medication as needed (7) Bipolar affect, depressed: Code(s): F31.30 - Bipolar disorder, current episode depressed, mild or moderate severity, unspecified Status: Acute Assessment and Plan: Noncompliant Will Attempt to place patient in rehab continue home medication (8) Peripheral edema: Code(s): R60.9 - Edema, unspecified Status: Acute Assessment and Plan: Will add diuretics as needed (9) Ileus: Code(s): K56.7 - Ileus, unspecified Status: Acute Assessment and Plan: Resolved CT of the abdomen indicate ileus without obstruction Patient remained n.p.o. overnight Added Reglan will also start Protonix DS: Summary Hospital Course Reason for hospitalization: AMS Hospital Course: Patient was discharged yesterday there is no change in patient condition from yesterday per previous discharge summary from Isabel Kovacs. Patient has no distress noted still reamins confused she will go to [facility] This is a 40-year-old female th
[2021-10-16 09:16] LABS: SARS-CoV-2 Ag Negative (Negative)
--- NOTE | 2021-10-16 10:35 | PC.NURSE ---
[id number] report called to [facility] and given to lisa. aware of joseph out and she is was now damp. no bm charted and on daily lax. daina marshall [facility] and care turned over to them with report. daina marshall
--- NOTE | 2021-10-17 11:44 | PC.NURSE ---
[facility] transferred pt to hospital last night for psychosis.
== END 2021-10-16 10:15 | DRG 420 ==
LOC: CHSED 13:27 → CHS2ND 14:07
PROVIDERS: Nurse Practitioner; Nurse Practitioner Family; Admitting Provider Internal Medicine; Emergency Provider Internal Medicine Critical Care Medicine; PCP Physician Assistant; Visit Provider Internal Medicine
DX: E11.00 Type 2 diabetes mellitus with hyperosmolarity without nonketotic hyperglycemic-hyperosmolar coma (NKHHC) (principal); N17.9 Acute kidney failure, unspecified; E87.6 Hypokalemia; K56.7 Ileus, unspecified; I10 Essential (primary) hypertension; F31.9 Bipolar disorder, unspecified; F17.210 Nicotine dependence, cigarettes, uncomplicated; Z86.73 Personal history of transient ischemic attack (TIA), and cerebral infarction without residual deficits; Z91.14 Patient's other noncompliance with medication regimen; Z79.01 Long term (current) use of anticoagulants; Z20.822 Contact with and (suspected) exposure to COVID-19
CPT/HCPCS: 36415; 36600; 70450; 70496; 70498; 71045; 74176; 80048; 80053; 80307; 81001; 81025; 82607; 82746; 82805; 82948; 83036; 83605; 83690; 83735; 83880; 84100; 84443; 84484; 85014; 85018; 85025; 85027; 85610; 85730; 87040; 87086; 87426; 92507; 92523; 92526; 92610; 93005; 93306; 96360; 96361; 96365; 96366; 96367; 96372; 96375; 97162; 97165; 97166; 99285; A9270; C9113; C9803; G0378; G0379; J0456; J0696; J1650; J1815; J2060; J2405; J2765; J3480; J7030; J7042; J7120; Q9967